=== PATIENT | female | born 1945 | race Caucasian/White ===

== ENCOUNTER → 2017-08-23 | Outpatient (CLI) | payer MEDICARE, OTHER ==
--- NOTE | 2017-08-23 10:12 | US ---
EXAMINATION TYPE: US thyroid st tissue head/neck DATE OF EXAM: 08/23/2017 COMPARISON: 07/20/2016 thyroid ultrasound CLINICAL HISTORY: E04.1 Nontoxic single thyroid nodule. Follow up thyroid nodules GLAND SIZE: Right Lobe: 5.6 x 2.4 x 3.0 cm Overall Parenchyma: heterogenous Left Lobe: 5.1 x 2.0 x 2.3 cm Overall Parenchyma: heterogeneous Isthmus Thickness: 0.4 cm NODULES RIGHT: # of nodules measured on right: 4 1. 0.6 X 0.4 x 0.6 cm mixed nodule at the upper pole with well-defined margins; . This nodule is w ider than tall and shows intranodular vascularity. Prior size: 0.6 x 0.6 x 0.4 cm 2. 2.6 X 1.5 x 1.8 cm isoechoic mixed nodule at the upper/mid pole with well-defined margins; . Thi s nodule is wider than tall and shows intranodular vascularity. Prior size: 1.9 x 1.4 x 1.4 cm 3. 1.9 X 1.4 x 1.7 cm mixed nodule at the lower pole with well-defined margins; . This nodule is wi mar than tall and shows intranodular vascularity. Prior size: 1.9 x 1.5 x 1.4 cm 4. 0.7 X 0.4 x 0.8 cm mixed nodule at the lower/medial pole with well-defined margins; . This nodul e is wider than tall and shows intranodular vascularity. Prior size: 0.5 x 0.5 x 0.5 cm LEFT: # of nodules measured on left: 2 1. 1.1 X 0.6 x 0.9 cm mixed nodule at the upper/mid pole with well-defined margins; . This nodule is wider than tall and shows intranodular vascularity. Prior size: 1.0 x 0.8 x 0.5 cm 2. 2.1 X 1.4 x 1.8 cm isoechoic solid nodule at the mid/lower pole with well-defined margins; . Thi s nodule is wider than tall and shows intranodular vascularity. Prior size: 2.1 x 1.1 x 1.0 cm ISTHMUS: # of nodules measured in the isthmus: 1 1. 0.4 X 0.3 x 0.4 cm mixed nodule at the right isthmus pole with well-defined margins; . This nod ule is wider than tall and shows no intranodular vascularity. Prior size: 0.5 x 0.4 x 0.3 cm Bilateral neck scanned, no evidence of lymphadenopathy. Heterogeneous, enlarged thyroid gland. Multiple nodules noted IMPRESSION: 1. Interval growth of a single right upper to mid isoechoic thyroid nodule, previously biopsied on and pathologically proven benign. This is increased in size to 2.6 cm as opposed to 1.9 cm. Rebiopsy could be performed given the interval growth. Alternatively nuclear medicine thyroid scan co uld be performed to evaluate for focal photopenia. 2. Multiple other bilateral thyroid nodules demonstrate no significant change from the prior represen ting a multinodular thyroid goiter.
== END | disposition home or self-care (01) ==
LOC: RADUSWWP 07:36
PROVIDERS: ATTEND Otolaryngology
DX: E04.2 Nontoxic multinodular goiter (principal)
CPT/HCPCS: 76536

== ENCOUNTER → 2018-08-27 | Outpatient (CLI) | payer MEDICARE, OTHER ==
--- NOTE | 2018-09-01 11:08 | MM ---
Reason for exam: screening (asymptomatic). Last mammogram was performed 1 year and 1 month ago. History: Patient is postmenopausal, history of other cancer, and is nulliparous. Family history of breast cancer in paternal cousin at age 40 and breast cancer in paternal aunt at age 60. 2 cyst aspirations of the right breast. MG 3D Screening Mammo W/Cad Bilateral CC and MLO view(s) were taken. Prior study comparison: July 19, 2017, bilateral MG 3d diag mammo w/cad JEFFREY. June 21, 2016, right breast MG 3d work up w/cad RT. The breast tissue is heterogeneously dense. This may lower the sensitivity of mammography. There are benign round bilateral breast calcifications. No discrete abnormality. ASSESSMENT: Benign, BI-RAD 2 RECOMMENDATION: Routine screening mammogram of both breasts in 1 year.
== END | disposition home or self-care (01) ==
LOC: RADMAMWWP 09:50
PROVIDERS: ATTEND Family Medicine
DX: Z12.31 Encounter for screening mammogram for malignant neoplasm of breast (principal)
CPT/HCPCS: 77063; 77067

== ENCOUNTER → 2018-08-27 | Outpatient (CLI) | payer MEDICARE, OTHER ==
--- NOTE | 2018-08-27 14:22 | US ---
EXAMINATION TYPE: US thyroid st tissue head/neck DATE OF EXAM: 08/27/2018 COMPARISON: 08/23/2017 CLINICAL HISTORY: E04.1 Thyroid Nodule. GLAND SIZE: Right Lobe: 5.3 x 2.3 x 2.5 cm Overall Parenchyma: heterogenous Left Lobe: 5.1 x 1.8 x 1.7 cm Overall Parenchyma: heterogeneous Isthmus Thickness: 0.2 cm NODULES RIGHT: # of nodules measured on right: 4 1. 0.7 X 0.4 x 0.9 cm hypoechoic mixed nodule at the upper pole with well-defined margins. This no dule is wider than tall and shows no intranodular vascularity. Prior size: 0.6 x 0.4 x 0.6 cm 2. 2.4 X 1.2 x 1.8 cm isoechoic mixed nodule at the upper/mid pole with well-defined margins. This nodule is wider than tall and shows intranodular vascularity. Prior size: 2.6 x 1.5 x 1.8 cm 3. 1.9 X 1.3 x 1.8 cm isoechoic solid nodule at the lower pole with well-defined margins. This nodu le is wider than tall and shows intranodular vascularity. Prior size: 1.9 x 1.4 x 1.8 cm 4. 0.5 X 0.3 x 0.5 cm hypoechoic mixed nodule at the lower pole with well-defined margins. This nod ule is wider than tall and shows intranodular vascularity. Prior size: 0.7 x 0.4 x 0.8 cm LEFT: # of nodules measured on left: 2 1. 0.9 X 0.6 x 0.8 cm hypoechoic mixed nodule at the upper/mid pole with well-defined margins. Thi s nodule is wider than tall and shows intranodular vascularity. Prior size: 1.1 x 0.6 x 0.9 cm 2. 2.1 X 1.4 x 1.8cm hypoechoic solid nodule at the mid/lower pole with well-defined margins. This nodule is wider than tall and shows no intranodular vascularity. Prior size 2.1 X 1.4 x 1.8cm ISTHMUS: # of nodules measured in the isthmus: 1 1. 0.5 X 0.3 x 0.6 cm hypoechoic solid nodule at the right pole with well-defined margins. This no dule is wider than tall and shows no intranodular vascularity. Prior size: 0.4 x 0.3 x 0.4 cm Bilateral neck scanned, no evidence of lymphadenopathy. IMPRESSION: Multinodular goiter with the nodules appear to be stable in size relative to the prior exam. Correlat e for thyroiditis.
== END | disposition home or self-care (01) ==
LOC: RADUSWWP 09:54
PROVIDERS: ATTEND Otolaryngology
DX: E04.2 Nontoxic multinodular goiter (principal)
CPT/HCPCS: 76536

== ENCOUNTER → 2018-12-25 | Outpatient (CLI) | payer MEDICARE, OTHER ==
--- NOTE | 2018-12-25 14:01 | XR ---
2 view abdomen HISTORY: Incomplete colonoscopy 2 views the abdomen on 3 images Air-filled loops of small and large bowel are present. Bone mineralization is maintained. Possible va scular calcifications are noted. Degenerative disc changes are noted in the visualized spine. Lung ba ses are clear. No pneumoperitoneum. IMPRESSION: Post colonoscopy findings.
== END | disposition home or self-care (01) ==
LOC: RADFLMAIN 10:25
PROVIDERS: ATTEND Surgery
DX: Z53.9 Procedure and treatment not carried out, unspecified reason (principal)
CPT/HCPCS: 74019

== ENCOUNTER → 2018-12-26 | Outpatient (CLI) | payer MEDICARE, OTHER ==
--- NOTE | 2018-12-26 09:52 | FL ---
EXAMINATION TYPE: FL barium enema DATE OF EXAM: 12/26/2018 COMPARISON: NONE HISTORY: Incomplete colonoscopy TECHNIQUE: A single contrast barium enema study is performed. 1 minute and 58 seconds of fluoroscopy time was utilized. FINDINGS: Engraver Pantograph view of the abdomen shows overall non-obstructive bowel gas pattern. This also demon strates osseous demineralization and moderate degenerative change of the spine and femoral acetabular joints. Numerous sigmoid diverticula are seen. Caliber of the sigmoid colon diffusely is slightly smaller or[place] n the remainder of the colon and may be sequela of chronic diverticulitis. Few diverticula are scatte red throughout the remainder the colon. No evidence of any mass or polyp, obstructing or constricting lesion throughout the colon. Appendix was filled and appeared normal. The terminal ileum was refluxed. IMPRESSION: Pancolonic diverticulosis predominating in the sigmoid colon. Sigmoid colon is slightly smaller in caliber in a long segment than the remainder the colon, possibly sequela of chronic divert iculitis. No annular constricting mass is seen.
== END | disposition home or self-care (01) ==
LOC: RADFLMAIN 08:19
PROVIDERS: ATTEND Surgery
DX: Z53.9 Procedure and treatment not carried out, unspecified reason (principal)
CPT/HCPCS: 74270

== ENCOUNTER → 2019-08-22 | Outpatient (CLI) | payer MEDICARE, OTHER ==
--- NOTE | 2019-08-22 11:51 | US ---
EXAMINATION TYPE: US thyroid st tissue head/neck DATE OF EXAM: 08/22/2019 COMPARISON: US 08/27/2018 and 08/23/2017. CLINICAL HISTORY: E04.1 Thyroid nodule. F/U nodules GLAND SIZE: Right Lobe: 5.4 x 2.0 x 3.1 cm Overall Parenchyma: heterogenous Left Lobe: 5.0 x 2.0 x 1.5 cm Overall Parenchyma: heterogeneous Isthmus Thickness: 0.4 cm NODULES RIGHT: # of nodules measured on right: 4 1. 0.8 X 0.5 x 0.9 cm hypoechoic solid nodule at the mid pole with well-defined margins; This nod ule is wider than tall and shows intranodular vascularity. Prior size: 0.7 x 0.4 x 0.9 cm 2. 2.6 X 1.4 x 2.1 cm echogenic mixed nodule at the mid pole with well-defined margins; This nodule is wider than tall and shows intranodular vascularity. Prior size: 2.4 x 1.2 x 1.8 cm 3. 2.5 X 1.5 x 1.5 cm isoechoic solid nodule at the lower pole with well-defined margins; This nod ule is wider than tall and shows intranodular vascularity. Prior size: 1.9 x 1.3 x 1.8 cm 4. 1.2 X 0.7 x 1.0 cm isoechoic solid nodule at the mid pole with poorly defined margins; This nod ule is wider than tall and shows intranodular vascularity. Prior size: Not visualized on prior LEFT: # of nodules measured on left: 2 1. 0.9 X 0.7 x 0.9 cm hypoechoic solid nodule at the mid pole with well-defined margins; This nodul e is wider than tall and shows intranodular vascularity. Prior size: 0.9 x 0.6 x 0.8 cm 2. 1.9 X 1.5 x 1.7 cm echogenic solid nodule at the lower pole with well-defined margins; This nod ule is wider than tall and shows intranodular vascularity. Prior size: 2.1 x 1.4 x 1.8 cm ISTHMUS: # of nodules measured in the isthmus: 1 1. 0.5 X 0.3 x 0.4 cm hypoechoic solid nodule with well-defined margins; This nodule is wider than tall and shows no intranodular vascularity. Prior size: 0.5 x 0.3 x 0.6 cm Bilateral neck scanned, no evidence of lymphadenopathy. New nodule right lobe. IMPRESSION: 1. Solitary new 1.2 cm right thyroid nodule. 2. Similar size of the bilateral thyroid nodules with slight growth of the largest right thyroid nodu le in comparison to the most recent exam, now 2.6 cm in size. However this was noted to be 2.6 cm on the exam of 08/23/2017. Multinodular goiter.
== END | disposition home or self-care (01) ==
LOC: RADUSWWP 10:49
PROVIDERS: ATTEND Otolaryngology
DX: E04.2 Nontoxic multinodular goiter (principal)
CPT/HCPCS: 76536

== ENCOUNTER 2019-09-12 09:28 | Day surgery (SDC) | payer MEDICARE, OTHER ==
[2019-09-12 10:01] VITALS: RESP 16; TEMP 97.4
--- NOTE | 2019-09-12 10:38 | US ---
ULTRASOUND GUIDED FNA THYROID BIOPSY: CLINICAL HISTORY: Request for 1.2 cm right thyroid nodule FNA FINDINGS: The procedure was explained to the patient. The risks, complications, benefits and alternatives were discussed and any questions were answered. Informed consent was obtained. Patient was placed supin e on the ultrasound table and prepped and draped in the usual sterile fashion. Utilizing a 25 gauge needle, five passes were made into the requested nodule. Patient was stable throughout the procedure. Pathology is pending. All elements of maximal barrier technique were utilized. IMPRESSION: 1. Successful ultrasound guided FNA thyroid biopsy.
[2019-09-12 10:50] VITALS: BP 129/84; PULSE 62
== END 2019-09-12 10:40 | disposition home or self-care (01) ==
LOC: RADPROMAIN 09:28
PROVIDERS: ATTEND Otolaryngology
DX: E04.1 Nontoxic single thyroid nodule (principal)
CPT/HCPCS: 10005; 88173; 88305

== ENCOUNTER → 2020-09-29 | Outpatient (CLI) | payer MEDICARE, OTHER ==
--- NOTE | 2020-09-29 15:52 | US ---
EXAMINATION TYPE: US thyroid st tissue head/neck DATE OF EXAM: 09/29/2020 COMPARISON: US 08/22/2019 CLINICAL HISTORY: E04.1 THYROID NODULE. Follow up. Patient had FNA 1 year ago GLAND SIZE: Right Lobe: 5.3 x 3.0 x 2.8 cm Overall Parenchyma: heterogenous Left Lobe: 4.8 x 1.9 x 1.7 cm Overall Parenchyma: heterogeneous Isthmus Thickness: 0.6 cm NODULES RIGHT: # of nodules measured on right: 4 1. 3.1 X 1.6 x 2.3 cm mixed cystic and solid, hyperechoic nodule, which is wider than tall, with sm ooth margins, without echogenic foci. Prior size: 2.5 X 1.5 x 1.5 cm 2. 2.3 X 1.5 x 1.8 cm solid or almost completely solid, isoechoic nodule, which is wider than tall, with smooth margins, without echogenic foci. Prior size: 2.5 X 1.5 x 1.5 cm 3. 1.1 X 0.8 x 1.4 cm solid or almost completely solid, hypoechoic nodule, which is wider than tall , with smooth margins, without echogenic foci. Prior size: 1.2 X 0.7 x 1.0 cm LEFT: # of nodules measured on left: 2 1. 1.9 X 1.5 x 1.3 cm solid or almost completely solid, hyperechoic nodule, which is wider than grey l, with smooth margins, without echogenic foci. Prior size: 2.1 x 1.4 x 1.8 cm 2. 1.2 X 0.6 x 1.2 cm solid or almost completely solid, hypoechoic nodule, which is wider than tall , with lobulated or irregular margins, without echogenic foci. Prior size: 0.9 x 0.6 x 0.8 cm ISTHMUS: # of nodules measured in the isthmus: 1 1. 0.5 cm solid or almost completely solid, hypoechoic nodule, which is wider than tall, with smooth margins, without echogenic foci. Prior size: 0.5 cm Bilateral neck scanned, no evidence of lymphadenopathy. Persistent heterogeneous multinodular thyroid with asymmetric right-sided thyroid enlargement. IMPRESSION: As above. No new concerning greater than 1 cm nodules. Prior sampling noted.
== END | disposition home or self-care (01) ==
LOC: RADUSWWP 14:53
PROVIDERS: ATTEND Otolaryngology
DX: E04.2 Nontoxic multinodular goiter (principal)
CPT/HCPCS: 76536

== ENCOUNTER → 2021-05-10 | Outpatient (CLI) | payer MEDICARE, OTHER ==
--- NOTE | 2021-05-10 12:09 | US ---
EXAMINATION TYPE: US thyroid st tissue head/neck DATE OF EXAM: 05/10/2021 COMPARISON: Multiple thyroid US's, Latest = 09/29/20, Right thyroid FNA 09/12/19 = negative per pt. CLINICAL HISTORY: 76-year-old female E04.1 thyroid nodule. TECHNIQUE: Multiple sonographic images of the thyroid gland are obtained. FINDINGS: GLAND SIZE: Right Lobe: 4.9 x 1.8 x 1.7 cm Overall Parenchyma: heterogenous Left Lobe: 4.9 x 2.2 x 1.9 cm Overall Parenchyma: heterogeneous Isthmus Thickness: 0.7 cm NODULES RIGHT: # of nodules measured on right: 4 1. 0.9 X 0.8 x 0.5 cm, lower mid, solid or almost completely solid, nodule, which is wider than grey l, with smooth margins, without echogenic foci. Prior size: = 0.8 x 0.5 x 0.8 cm 2. 2.9 X 2.1 x 1.6 cm, upper lateral, mixed cystic and solid, hyperechoic nodule, which is wider th an tall, with smooth margins, with echogenic foci. Prior size: 3.1 x 1.6 x 2.3 cm cm 3. 2.7 X 1.5 x 1.5 cm, mid mid, solid or almost completely solid, mixed echogenicity nodule, which is wider than tall, with smooth margins, without echogenic foci. Prior size: 2.3 x 1.5 x 1.8 cm 4. 1.0 X 0.9 x 0.5 cm, lower medial, solid or almost completely solid, hypoechoic nodule, which is wider than tall, with smooth margins, without echogenic foci. Prior size: 1.1 x 0.8 x 1.4 cm LEFT: # of nodules measured on left: 2 1. 2.0 X 1.5 x 1.5 cm, lower mid, solid or almost completely solid, hyperechoic nodule, which is wi mar than tall, with smooth margins, without echogenic foci. Prior size: 1.9x 1.5 x 1.3 cm 2. 1.2 X 0.7x 1.2cm, mid mid, solid or almost completely solid, hypoechoic nodule, which is wider t mchugh tall, with smooth margins, without echogenic foci. Prior size: 1.2x 0.6 x 1.2 cm ISTHMUS: # of nodules measured in the right isthmus: 1 1. 0.8 X 0.7 x 0.5 cm solid or almost completely solid, hypoechoic nodule, which is wider than tall , with lobulated or irregular margins, without echogenic foci. Prior size: 6 mm Bilateral neck scanned, no evidence of lymphadenopathy. IMPRESSION: 1. Multinodular goiter. 2. Dominant nodules on the right measuring 2.9 cm (slightly smaller versus 3.1 cm, previously). Secon d dominant solid nodule in the midpole is stable to minimally larger at 2.7 cm (versus 2.3 cm, previo usly). Continued follow-up can be performed. 3. A solid TR4 nodule in the right thyroid isthmus is slightly larger at 8 mm versus 6 mm, previously .
== END | disposition home or self-care (01) ==
LOC: RADUSWWP 08:14
PROVIDERS: ATTEND Otolaryngology
DX: E04.2 Nontoxic multinodular goiter (principal)
CPT/HCPCS: 76536

== ENCOUNTER → 2022-05-26 | Outpatient (CLI) | payer MEDICARE, OTHER ==
--- NOTE | 2022-05-26 10:16 | US ---
EXAMINATION TYPE: US thyroid st tissue head/neck DATE OF EXAM: 05/26/2022 COMPARISON: US 2020 CLINICAL HISTORY: E04.1 Nontoxic single thyroid nodule. GLAND SIZE: Right Lobe: 5.8 x 2.6 x 3.1 cm, enlarged Overall Parenchyma: heterogenous Left Lobe: 5.1 x 2.3 x 1.7 cm, enlarged Overall Parenchyma: heterogeneous Isthmus Thickness: 0.5 cm NODULES RIGHT: # of nodules measured on right: 2 1. 2.8 X 1.3 x 2.2 cm, upper lateral, mixed cystic and solid, hypoechoic nodule, which is wider [place] n tall, with smooth margins, without echogenic foci. Prior size: 2.9 x 2.1 x 1.6 cm 2. 2.6 X 1.4 x 1.8 cm, mid, solid or almost completely solid, hypoechoic nodule, which is wider [place] n tall, with smooth margins, without echogenic foci. Prior size: 2.7 x 1.5 x 1.5 cm LEFT: # of nodules measured on left: 2 1. 1.8 X 1.6 x 1.3 cm, lower mid, solid or almost completely solid, hyperechoic nodule, which is ta ller than wide, with smooth margins, without echogenic foci. Prior size: 2.0 x 1.5 x 1.5 cm 2. 1.3 X 0.9 x 1.1 cm, mid, solid or almost completely solid, hypoechoic nodule, which is wider th an tall, with smooth margins, without echogenic foci. Prior size: 1.2 x 0.7 x 1.2 cm ISTHMUS: # of nodules measured in the isthmus: 0 Bilateral neck scanned, no evidence of lymphadenopathy. Heterogeneous enlarged thyroid with bilateral nodules redemonstrated. IMPRESSION: As above. No significant change from prior studies.
== END | disposition home or self-care (01) ==
LOC: RADUSWWP 09:18
PROVIDERS: ATTEND Otolaryngology
DX: E04.2 Nontoxic multinodular goiter (principal)
CPT/HCPCS: 76536

== ENCOUNTER 2023-02-06 17:29 | Emergency (ER) | payer MEDICARE, OTHER ==
--- NOTE | 2023-02-06 17:33 | ED ---
General Adult HPI - General Source: RN notes reviewed <Amara Baez - Last Filed: 02/06/23 17:32> <Benji Garcia - Last Filed: 02/06/23 21:51> - General Stated complaint: Sent From Urgent Care, Neuro Symptoms Time Seen by Provider: 02/06/23 17:33 - History of Present Illness Initial comments: 78-year-old female with no significant past medical history presents to the emergency department with a chief complaint of altered mental status. Family reports that patient and not acting herself for approximately one month with worsening altered mental status the last 4 nights. (Amara Baez) Dictation was produced using [employer] dictation software. please excuse any grammatical, word or spelling errors. Chief Complaint: 78-year-old female presents emergency department for left facial droop and left upper showing weakness History of Present Illness: Is 78-year-old female she initially presented to the urgent care for urinary symptoms. She was evaluated by physician bankruptcy assistant there who saw the patient had left facial droop and mild weakness of the left upper extremity. Patient doesn't have any history of stroke. Daughter at the bedside reports that patient has had some confusion recently. Patient denies any complaints at this time. Daughter doesn't notice a facial droop. The ROS documented in this emergency department record has been reviewed and confirmed by me. Those systems with pertinent positive or negative responses have been documented in the HPI. All other systems are other negative and/or noncontributory. (Benji Garcia) - Related Data Home Medications Medication Instructions Recorded Confirmed Aspirin 325 mg PO DAILY 06/05/15 09/12/19 Atorvastatin [Lipitor] 20 mg PO DAILY 06/05/15 09/12/19 Cholecalciferol [Vitamin D3] 1,000 unit PO DAILY 06/05/15 08/30/19 Primidone [Mysoline] 75 mg PO BID 06/05/15 08/30/19 Propranolol HCl [Inderal] 60 mg PO DAILY 06/05/15 08/30/19 buPROPion HCL [buPROPion HCL SR] 150 mg PO DAILY 08/30/19 08/30/19 clonazePAM [KlonoPIN] 0.5 mg PO BID 08/30/19 08/30/19 Allergies Allergy/AdvReac Type Severity Reaction Status Date / Time No Known Allergies Allergy Verified 09/12/19 09:55 Review of Systems ROS Other: All systems not noted in ROS Statement are negative. <Amara Baez - Last Filed: 02/06/23 17:32> ROS Other: All systems not noted in ROS Statement are negative. <Benji Garcia - Last Filed: 02/06/23 21:51> ROS Statement: Those systems with pertinent positive or pertinent negative responses have been documented in the HPI. Past Medical History Past Medical History: Cancer, Thyroid Disorder Additional Past Medical History / Comment(s): tremors, mass on adrenal gland being investigated, lower back pain. 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 History of Any Multi-Drug Resistant Organisms: None Reported Past Surgical History: Back Surgery Additional Past Surgical History / Comment(s): back surgery in - "fixed slip disc", thyroid biopsy, skin scraping x4 for basal cell legs and forehead Past Anesthesia/Blood Transfusion Reactions: No Reported Reaction, Postoperative Nausea & Vomiting (PONV) Additional Past Anesthesia/Blood Transfusion Reaction / Comment(s): no previous Past Psychological History: No Psychological Hx Reported Past Alcohol Use History: None Reported Additional Past Alcohol Use History / Comment(s): pt doesn't want info on smoking cessation - 08/30/19 Past Drug Use History: None Reported - Past Family History Father Family Medical History: No Reported History <Amara Baez - Last Filed: 02/06/23 17:32> General Exam <Amara Baez - Last Filed: 02/06/23 17:32> <Benji Garcia - Last Filed: 02/06/23 21:51> - General Exam Comments Initial Comments: Visual Physical Exam Vital signs reviewed General: Well-appearing, nontoxic, no acute distress. Head: Normocephalic, atraumatic Eyes: PERRLA, EOMI ENT: Airway patent Chest: Nonlabored breathing Skin: No visual rash, normal skin tone Neuro: Alert and oriented 3 Musculoskeletal: No gross abnormalities (Amara Baez) PHYSICAL EXAM: General Impression: Alert and oriented x3, not in acute distress HEENT: Normocephalic atraumatic, extra-ocular movements intact, pupils equal and reactive to light bilaterally, mucous membranes moist. Cardiovascular: Heart regular rate and rhythm Chest: Able to complete full sentences, no retractions, no tachypnea Abdomen: abdomen soft, non-tender, non-distended, no organomegaly Musculoskeletal: Pulses present and equal in all extremities, no peripheral edema Motor: no focal deficits noted Neurological: Left facial droop, barely noticeable strength discrepancy with the left vice president strength being slightly last Skin: Intact with no visualized rashes Psych: Normal affect and mood (Benji Garcia) Course Vital Signs 02/06/23 17:31 Temperature 97.8 F Pulse Rate 62 Respiratory 18 Rate Blood Pressure 123/76 O2 Sat by Pulse 96 Oximetry Medical Decision Making - Lab Data Result diagrams: 02/06/23 18:14 02/06/23 18:14 <Benji Garcia - Last Filed: 02/06/23 21:51> - Medical Decision Making Was pt. sent in by a medical professional or institution (, PA, TEST TECHNICIAN, urgent care, hospital, or snf...) When possible be specific @ -No Did you speak to anyone other than the patient for history (EMS, parent, family, police, friend...)? What history was obtained from this source @ -No Did you review nursing and triage notes (agree or disagree)? Why? @ -I reviewed and agree with nursing and triage notes Were old charts reviewed (outside hosp., previous admission, EMS record, old EKG, old radiological studies, urgent care reports/EKG's, snf records)? Report findings @ -No old charts were reviewed Differential Diagnosis (chest pain, altered mental status, abdominal pain women, abdominal pain men, vaginal bleeding, musculoskeletal, weakness, fever, dyspnea , syncope, headache, dizziness, GI bleed, back pain, seizure, CVA, palpatations, mental health)? @ - Differential CVA: Ischemic stroke, hemorrhagic stroke, brain tumor, atypical migraine, Wernicke's encephalopathy, seizure, multiple sclerosis, meningitis, encephalitis, hypoglyce wolfgang, Guillain-Crenshaw, electrolytes disturbance, myasthenia gravis.... This is not meant to be an all-inclusive list EKG interpreted by me (3pts min.). @ -My EKG interpretation: Ventricular rate 50, sinus bradycardia, right bundle branch block,. Interval 200, QRS 142, QTc 4:30. No NV prolongation, no QTC prolongation, no ST or T-wave changes noted. Overall, this EKG is unremarkable X-rays interpreted by me (1pt min.). @ -Chest X-ray shows no acute processes CT interpreted by me (1pt min.). @ -Computed tomography scan the brain shows large right frontal mass with surrounding vasogenic edema U/S interpreted by me (1pt. min.). @ -None done What testing was considered but not performed or refused? (CT, X-rays, U/S, labs)? Why? @ -None What meds were considered but not given or refused? Why? @ -None Did you discuss the management of the patient with other professionals (professionals i.e. , PA, TEST TECHNICIAN, lab, RT, psych nurse, social services director, dictaphone mechanic, teacher, community service officer, therapeutic case manager)? Give summary @ -Discussed with Dr. Mclean for ER to ER transfer Was smoking cessation discussed for >3mins.? @ -No Was critical care preformed (if so, how long)? @ -No Were there social determinants of health that impacted care today? How? (Ho melessness, low income, unemployed, alcoholism, drug addiction, transportation, low edu. Level, literacy, decrease access to med. care, skilled nursing, rehab)? @ -No Was there de-escalation of care discussed even if they declined (Discuss DNR or withdrawal of care, Hospice)? DNR status @ -No What co-morbidities impacted this encounter? (DM, HTN, Smoking, COPD, CAD, Cancer, CVA, ARF, Chemo, Hep., AIDS, mental health diagnosis, sleep apnea, morbid obesity)? @ -None Was patient admitted / discharged? Hospital course, mention meds given and route, prescriptions, significant lab abnormalities, going to OR and other pertinent info. @ -78-year-old female presents emergency Department with left facial droop. Vital signs are stable. Computed tomography scan shows no intracranial mass. Patient transferred to [place] for neurosurgical care. Undiagnosed new problem with uncertain prognosis? @ -No Drug Therapy requiring intensive monitoring for toxicity (Heparin, Nitro, Insulin, Cardizem)? @ -No Were any procedures done? @ -No Diagnosis/symptom? Acute, or Chronic, or Acute on Chronic? Uncomplicated (without systemic symptoms) or Complicated (systemic symptoms)? @ -1. Brain mass Side effects of treatment? @ -No Exacerbation, Progression, or Severe Exacerbation? @ -No Poses a threat to life or bodily function? How? (Chest pain, USA, PA, pneumonia, PE, COPD, DKA, ARF, appy, cholecystitis, CVA, Diverticulitis, Homicidal, Suicidal, threat to staff... and all critical care pts) @ -yes (Benji Garcia) - Lab Data Lab Results 02/06/23 02/06/23 Range/Units 18:14 18:14 WBC 8.3 (3.8-10.6) k/uL RBC 4.59 (3.80-5.40) m/uL Hgb 13.8 (11.4-16.0) gm/dL Hct 43.2 (34.0-46.0) % MCV 94.0 (80.0-100.0) fL MCH 30.0 (25.0-35.0) pg MCHC 32.0 (31.0-37.0) g/dL RDW 13.1 (11.5-15.5) % Plt Count 240 (150-450) k/uL MPV 9.2 Neutrophils % 72 % Lymphocytes % 17 % Monocytes % 7 % Eosinophils % 2 % Basophils % 0 % Neutrophils # 6.0 (1.3-7.7) k/uL Lymphocytes # 1.4 (1.0-4.8) k/uL Monocytes # 0.6 (0-1.0) k/uL Eosinophils # 0.2 (0-0.7) k/uL Basophils # 0.0 (0-0.2) k/uL Sodium 142 (137-145) mmol/L Potassium 4.0 (3.5-5.1) mmol/L Chloride 110 H (98-107) mmol/L Carbon Dioxide 24 (22-30) mmol/L Anion Gap 8 mmol/L BUN 26 H (7-17) mg/dL Creatinine 0.81 (0.52-1.04) mg/dL Est GFR (CKD-EPI)AfAm 82 (>60 ml/min/1.73 sqM) Est GFR (CKD-EPI)NonAf 71 (>60 ml/min/1.73 sqM) Glucose 98 (74-99) mg/dL Calcium 9.5 (8.4-10.2) mg/dL Total Bilirubin 0.5 (0.2-1.3) mg/dL AST 31 (14-36) U/L ALT 25 (4-34) U/L Alkaline Phosphatase 83 (38-126) U/L Total Protein 7.2 (6.3-8.2) g/dL Albumin 4.1 (3.5-5.0) g/dL Disposition <Amara Baez - Last Filed: 02/06/23 17:32> Time of Disposition: 21:51 - Out of Hospital Transfer - Req. Specs Out of Hospital Transfer - Requested Specifics: Other Emergency Center ([facility]) <Benji Garcia - Last Filed: 02/06/23 21:51> Clinical Impression: Brain mass Disposition: OTHER INSTITUTION NOT DEFINED Condition: Serious Referrals: Isrrael Muellre DO [Primary Care Provider] - 1-2 days
[2023-02-06 17:35] VITALS: RESP 18; TEMP 97.8
[2023-02-06 18:25] LABS: Basophils % (A) 0 %; Eosinophils # (A) 0.2 k/uL (0-0.7); Eosinophils % (A) 2 %; HCT 43.2 % (34.0-46.0); HGB 13.8 gm/dL (11.4-16.0); Lymphocytes # (A) 1.4 k/uL (1.0-4.8); Lymphocytes % (A) 17 %; Mean Platelet Volume 9.2; Monocytes # (A) 0.6 k/uL (0-1.0); Monocytes % (A) 7 %; Neutrophils % (A) 72 %; Platelet Count 240 k/uL (150-450); RBC 4.59 m/uL (3.80-5.40); RDW 13.1 % (11.5-15.5); WBC 8.3 k/uL (3.8-10.6)
[2023-02-06 18:35] LABS: ALT 25 U/L (4-34); AST 31 U/L (14-36); African American GFR (CKD) 82 (>60 ml/min/1.73 sqM); Albumin 4.1 g/dL (3.5-5.0); Alkaline Phosphatase 83 U/L (38-126); Anion Gap 8 mmol/L; Blood Urea Nitrogen 26 mg/dL (7-17); Calcium 9.5 mg/dL (8.4-10.2); Carbon Dioxide 24 mmol/L (22-30); Chloride 110 mmol/L (98-107); Glucose 98 mg/dL (74-99); Non-African American GFR(CKD) 71 (>60 ml/min/1.73 sqM); Sodium 142 mmol/L (137-145); Total Bilirubin 0.5 mg/dL (0.2-1.3); Total Protein 7.2 g/dL (6.3-8.2)
--- NOTE | 2023-02-06 18:50 | XR ---
EXAMINATION TYPE: XR chest 2V DATE OF EXAM: 02/06/2023 6:25 PM COMPARISON: Chest radiographs from 06/23/2016 TECHNIQUE: Frontal and lateral views of the chest. CLINICAL INDICATION:Female, 78 years old with history of weakness; FINDINGS: Lungs/Pleura: There is flattening of the diaphragm with increased lucency of the lungs. No evidence o f pneumothorax, pleural effusion or focal consolidation. Pulmonary vascularity: Unremarkable. Heart/mediastinum: Cardiomediastinal silhouette is unremarkable. Musculoskeletal: No acute osseous pathology. IMPRESSION: 1. No acute cardiopulmonary disease process. 2. COPD changes.
[2023-02-06] MEDS ORDERED: DEXAMETHASONE SOD PHOSPHATE 10 MG/ML 1 ML VIAL IV STA (20:47)
--- NOTE | 2023-02-06 21:28 | CT ---
EXAMINATION TYPE: CT brain wo con CT DLP: 1154 mGycm, Automated exposure control for dose reduction was used. DATE OF EXAM: 02/06/2023 8:46 PM COMPARISON: None. CLINICAL INDICATION:Female, 78 years old with history of left facial droop, neuro symptoms, sent by Jack KNIGHT. TECHNIQUE: Brain: Axial CT images of the brain were obtained with coronal and sagittal reformats created and rev iewed. Contrast used: None. Oral contrast used: None. FINDINGS: Brain: Extra-axial spaces: No abnormal extra-axial fluid collections. Ventricular system: Within normal limits Cerebral parenchyma: Right frontal lobe mass which is unclear whether The intra-axial or extra-axial Contrast exam. This results in vasogenic edema of the right frontal lobe and significant mass effect upon the brain with leftward 2.2 cm midline shift subfalcine herniation. No acute intraparenchymal he morrhage. The mcdowell-white junction is well differentiated. Cerebellum: Unremarkable. Intracranial vasculature: unremarkable Soft tissues: Normal. Calvarium/osseous structures: No depressed skull fracture. Paranasal sinuses and mastoid air cells: Mild scattered paranasal sinus disease. Visualized orbits: Orbital contents are intact. IMPRESSION: Anterior right frontal lobe mass unclear whether it intra-axial or extra-axial with surrounding vasog enic edema of the right frontal lobe. Findings if it extra-axial could represent a large meningioma. If this is intra-axial could represent a primary brain glioma versus metastatic disease versus other. There is leftward 2.2 cm midline shift and subfalcine herniation. Further evaluation MRI with and wi thout IV contrast recommended. Correlate with history of malignancy.
[2023-02-06 22:25] VITALS: BP 123/78; PULSE 56
== END 2023-02-06 22:30 | disposition other institution (70) ==
LOC: EC 17:29
DX: G93.9 Disorder of brain, unspecified (principal); J44.9 Chronic obstructive pulmonary disease, unspecified; Z79.82 Long term (current) use of aspirin
CPT/HCPCS: 93005; 80053; 85025; 71046; 70450; 99285; 96374; J1100; 36415

== ENCOUNTER → 2023-03-21 | Outpatient (CLI) | payer MEDICARE, OTHER ==
--- NOTE | 2023-03-24 10:09 | MR ---
EXAMINATION TYPE: MR brain wo/w con DATE OF EXAM: 03/21/2023 6:19 PM CLINICAL INDICATION:Female, 78 years old with history of D32.0 BENIGN NEOPLASM OF CEREBRAL MENINGES; Hx Brain cancer COMPARISON: 02/21/2023, 02/12/2023 TECHNIQUE: Multi planar, multi sequence imaging was performed through the brain including: T1, T2, In version recovery, susceptibility weighted imaging and gradient echo imaging and Diffusion weighted im aging. The patient was then given intravenous contrast and multi planar, T1 fat-saturation images wer e obtained. IV Contrast: 8 cc Gadavist FINDINGS: Suspected continued evolution of post surgical change with thin the anterior right frontal lobe. Cran iotomy changes are present with some postsurgical changes along the inner plate of the calvarium. Leonor ceptibility artifact along the surgical margins compatible with hemosiderin deposition from prior sudha neo. Postsurgical high T2 signal extends down into the marketing/sales person space along the muscles of mastica tion on the right. Findings likely representing seroma and/or resolving blood products. There is post surgical change to the anterior falx. Post contrast imaging demonstrates heterogenous signal in the s urgical bed. There is some enhancement of the pachymeninges best appreciated on series 901 image 102. Additional enhancement along the craniotomy site. Smaller focus of enhancement more inferiorly near along the interhemispheric fissure slightly asymmetric right series 901 1 image 82 possibly within th e cortex of the right frontal lobe. There is ventricular dilation in proportion to cerebral atrophy. No significant midline shift on toda y's exam. Diffusion-weighted imaging shows no evidence of restricted diffusion to suggest acute/subacute infarc t. There is restricted diffusion in surgical bed consistent with post surgical change. Intracranial arterial flow voids are maintained. Midline structures show no abnormality. Scattered fo ci of high T2 signal intensity are seen within the periventricular white matter. The susceptibility w eighted images do not reveal any evidence for micro-hemorrhage. The bone marrow signal is within normal limits. . Paranasal sinuses and mastoid air cells: Paranasal sinus mucosal thickening involving the right maxil huan sinus. Visualized orbits: Bilaterally aphakia. IMPRESSION: 1. Postsurgical changes with decrease in vasogenic edema compared to 02/12/[address] 02/06/2023. T here is postcontrast enhancement of the pachymeninges in the surgical bed along the anterior skull an d along the falx cerebri which could represent residual tumor in the setting of meningioma. 2. Smaller focus of enhancement more inferiorly near along the interhemispheric fissure slightly asy mmetric right series 901 1 image 82 possibly within the cortex of the right frontal lobe. Attention o n follow-up imaging. Not definitively seen on prior 02/12/2023.
== END | disposition home or self-care (01) ==
LOC: RADMRIMAIN 17:11
PROVIDERS: ATTEND Radiology Radiation Oncology
DX: D32.0 Benign neoplasm of cerebral meninges (principal); G93.6 Cerebral edema; Z98.890 Other specified postprocedural states
CPT/HCPCS: 70553; A9585

== ENCOUNTER → 2023-08-03 | Outpatient (CLI) | payer MEDICARE, OTHER ==
--- NOTE | 2023-08-03 15:16 | MR ---
EXAMINATION TYPE: MR brain wo/w con DATE OF EXAM: 08/03/2023 COMPARISON: 03/21/2023 HISTORY: Brain cancer, hx of tumor removal TECHNIQUE: Multiplanar, multisequence images of the brain and brainstem is performed without and with IV contras t, utilizing 8 mL intravenous Gadavist . FINDINGS: There are postsurgical changes of a right frontal craniotomy for resection of the mass right frontal region.. As on the prior study, there is stable diffuse enhancement of the anterior falx and meninge s possibly postsurgical in nature. . The enhancement seen within the surgical bed on the prior study has decreased significantly in the interval and there is no definite evidence for recurrent or residu al neoplasm. Extra-axial fluid collection along the right inner table of the frontal bone which is st able. There is persistent stable vasogenic edema in the right frontal white matter adjacent to the smith rgical site. No new lesions are seen. The ventricles, basal cisterns and sulci over the convexities are moderately enlarged consistent with moderate atrophy. There is no mass effect or shift of the midline structures. The posterior fossa including the brainstem, fourth ventricle and cerebellar pontine angles appear no rmal. The intraorbital contents appear normal and symmetric. There is acute inflammatory change in the right maxillary sinus. There is mild fluid in the left mast oid air cells. There is no diffusion restriction on the diffusion-weighted images. IMPRESSION: 1. Postsurgical changes of right frontal craniotomy and resection of a tumor in the right frontal reg ion. 2. No change in the mild meningeal enhancement and vasogenic edema in the right frontal region. 3. Decreased enhancement in the surgical bed. Minimal enhancement persists. Cannot exclude residual n eoplasm. 4. No new lesions seen. 5. No mass effect or shift of the midline structures.
== END | disposition home or self-care (01) ==
LOC: RADMRIMAIN 13:15
PROVIDERS: ATTEND Radiology Radiation Oncology
DX: D42.0 Neoplasm of uncertain behavior of cerebral meninges (principal); R60.0 Localized edema; F17.210 Nicotine dependence, cigarettes, uncomplicated; Z98.890 Other specified postprocedural states
CPT/HCPCS: 70553; A9585

== ENCOUNTER → 2023-11-06 | Outpatient (CLI) | payer MEDICARE, OTHER ==
--- NOTE | 2023-11-06 23:02 | MR ---
EXAMINATION TYPE: MR brain wo/w con DATE OF EXAM: 11/06/2023 COMPARISON: HISTORY: Follow-up per Dr. Brown-post tumor removal CONTRAST: Performed utilizing 6.5ml mL intravenous Gadavist gadolinium contrast. TECHNIQUE: Multiplanar, multiecho imaging on a 3.0 Ally magnet is performed through the brain. Stud y is performed within 24 hours of arrival to the hospital. The craniovertebral junction is normal. The pituitary is normal. Postsurgical changes are within the right frontal lobe. White matter changes are adjacent to the ante rior horn right lateral ventricle and the resected frontal lobe. Postsurgical changes are at the fron grey lobe resection border. Some minimal old prior hemorrhage has some blooming effect. No acute or smith bacute hemorrhage. The resection margin does not have abnormal enhancement. No abnormal enhancement is evident elsewhere within the brain. Diffusion-weighted imaging is performed. No abnormal hyperintensity is present to suggest an acute i ntracranial infarct or acute ischemic change. Ventricles and sulci are there is moderate prominence of ventricles and sulci, stable from comparison for the patient age. There is opacification of the right maxillary sinus. IMPRESSION: 1. No suspicious changes to suggest recurrent tumor right frontal lobe. Postresection changes appear stable from comparison. 2. Atrophy. 3. Mild periventricular white matter changes adjacent to the anterior horns lateral ventricles. This white matter change extends towards the resection area of the right frontal lobe, but appear stable f rom comparison
== END | disposition home or self-care (01) ==
LOC: RADMRIMAIN 11:52
PROVIDERS: ATTEND Radiology Radiation Oncology
DX: D32.0 Benign neoplasm of cerebral meninges (principal); G31.9 Degenerative disease of nervous system, unspecified; R90.82 White matter disease, unspecified; F17.210 Nicotine dependence, cigarettes, uncomplicated
CPT/HCPCS: 70553; A9585

== ENCOUNTER 2023-12-25 14:47 | Emergency (ER) | payer MEDICARE, OTHER ==
--- NOTE | 2023-12-25 15:00 | ED ---
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 Patient reports yesterday she was washing her feet and accidentally lost her balance. She does report she was kneeling when she fell. She does states she hit her head. Denies loss of consciousness or blood thinner use. No other injuries or complaints. (Armando Yancey) This is a 78-year-old female to the ER for evaluation of fall. Patient lost balance while washing her feet fell backwards hit her head, no loss of consciousness or blood thinners. Mild to severe headache positive nausea vomiting (Jamie Fu) - Related Data Home Medications Medication Instructions Recorded Confirmed Aspirin 325 mg PO DAILY 06/05/15 09/12/19 Atorvastatin [Lipitor] 20 mg PO DAILY 06/05/15 09/12/19 Cholecalciferol [Vitamin D3] 1,000 unit PO DAILY 06/05/15 08/30/19 Primidone [Mysoline] 75 mg PO BID 06/05/15 08/30/19 Propranolol HCl [Inderal] 60 mg PO DAILY 06/05/15 08/30/19 buPROPion HCL [buPROPion HCL SR] 150 mg PO DAILY 08/30/19 08/30/19 clonazePAM [KlonoPIN] 0.5 mg PO BID 08/30/19 08/30/19 Previous Rx's Medication Instructions Recorded HYDROcodone/APAP 7.5-325MG [[place] 1 tab PO Q6HR PRN 3 Days #12 tab 04/09/23 7.5-325] Allergies Allergy/AdvReac Type Severity Reaction Status Date / Time No Known Allergies Allergy Verified 12/25/23 16:06 Review of Systems ROS Other: All systems not noted in ROS Statement are negative. <Armando Yancey - Last Filed: 12/25/23 14:59> ROS Other: All systems not noted in ROS Statement are negative. <Jamie Fu - Last Filed: 01/02/24 14:54> ROS Statement: Those systems with pertinent positive or pertinent negative responses have been documented in the HPI. Past Medical History Past Medical History: Cancer, GERD/Reflux, Thyroid Disorder Additional Past Medical History / Comment(s): tremors, mass on adrenal gland being investigated, lower back pain. 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 History of Any Multi-Drug Resistant Organisms: None Reported Past Surgical History: Back Surgery Additional Past Surgical History / Comment(s): back surgery in - "fixed slip disc", thyroid biopsy, skin scraping x4 for basal cell legs and forehead Past Anesthesia/Blood Transfusion Reactions: No Reported Reaction, Postoperative Nausea & Vomiting (PONV) Additional Past Anesthesia/Blood Transfusion Reaction / Comment(s): no previous Past Psychological History: No Psychological Hx Reported Smoking Status: Never smoker Past Alcohol Use History: None Reported Past Drug Use History: None Reported - Past Family History Father Family Medical History: No Reported History <Armando Yancey - Last Filed: 12/25/23 14:59> General Exam <Armando Yancey - Last Filed: 12/25/23 14:59> General appearance: alert, in no apparent distress Head exam: Present: atraumatic, normocephalic, normal inspection Eye exam: Present: normal appearance, PERRL, EOMI. Absent: scleral icterus, conjunctival injection, periorbital swelling ENT exam: Present: normal exam, mucous membranes moist Neck exam: Present: normal inspection. Absent: tenderness, meningismus, lymphadenopathy Respiratory exam: Present: normal lung sounds bilaterally. Absent: respiratory distress, wheezes, rales, rhonchi, stridor Cardiovascular Exam: Present: regular rate, normal rhythm, normal heart sounds. Absent: systolic murmur, diastolic murmur, rubs, gallop, clicks GI/Abdominal exam: Present: soft, normal bowel sounds. Absent: distended, tenderness, guarding, rebound, rigid Extremities exam: Present: normal inspection, full ROM, normal capillary refill. Absent: tenderness, pedal edema, joint swelling, calf tenderness Back exam: Present: normal inspection Neurological exam: Present: alert, oriented X3, CN II-XII intact Psychiatric exam: Present: normal affect, normal mood Skin exam: Present: warm, dry, intact, normal color. Absent: rash <Jamie Fu - Last Filed: 01/02/24 14:54> - General Exam Comments Initial Comments: Visual Physical Exam General: Well-appearing, nontoxic, no acute distress. Head: Normocephalic, atraumatic Eyes: PERRLA, EOMI ENT: Airway patent Chest: Nonlabored breathing Skin: No visual rash, normal skin tone Neuro: Alert and oriented 3 Musculoskeletal: No gross abnormalities (Armando Yancey) Course <Jamie Fu - Last Filed: 01/02/24 14:54> Vital Signs 12/25/23 12/25/23 16:03 18:28 Temperature 98.3 F 97.5 F L Pulse Rate 56 L 56 L Respiratory 16 18 Rate Blood Pressure 112/72 125/74 O2 Sat by Pulse 98 97 Oximetry - Reevaluation(s) Reevaluation #1: Medical records reviewed (Jamie Fu) Reevaluation #2: Patient symptoms unchanged (Jamie Fu) Reevaluation #3: Patient informed of results questions answered (Jamie Fu) Reevaluation #4: Was pt. sent in by a medical professional or institution (, PA, HEALTH SAFETY AND ENVIRONMENT MANAGER, urgent care, hospital, or intermediate...) When possible be specific @ -no Did you speak to anyone other than the patient for history (EMS, parent, family, police, friend...)? What history was obtained from this source @ -no Did you review nursing and triage notes (agree or disagree)? Why? @ -agree Are old charts reviewed (outside hosp., previous admission, EMS record, old EKG, old radiological studies, urgent care reports/EKG's, intermediate records)? Report findings @ -yes Differential Diagnosis (chest pain, altered mental status, abdominal pain women, abdominal pain men, vaginal bleeding, weakness, fever, dyspnea, syncope, headache, dizziness, GI bleed, back pain, seizure, CVA, palpatations, mental health, musculoskeletal)? @ -prior EKG interpreted by me (3pts min.). @ -no X-rays interpreted by me (1pt min.). @ -no CT interpreted by me (1pt min.). @ -yes negative for acute disease U/S interpreted by me (1pt. min.). @ -no What testing was considered but not performed or refused? (CT, X-rays, U/S, labs)? Why? @ -none What meds were considered but not given or refused? Why? @ -none Did you discuss the management of the patient with other professionals (professionals i.e. , PA, HEALTH SAFETY AND ENVIRONMENT MANAGER, lab, RT, psych nurse, social media editor, patient support representative, teacher, quality officer, assistant case manager)? Give summary @ -no Was smoking cessation discussed for >3mins.? @ -no Was critical care preformed (if so, how long)? @ -no Were there social determinants of health that impacted care today? How? (Homelessness, low income, unemployed, alcoholism, drug addiction, transportati on, low edu. Level, literacy, decrease access to med. care, alf, rehab)? @ -none Was there de-escalation of care discussed even if they declined (Discuss DNR or withdrawal of care, Hospice)? DNR status @ -no What co-morbidities impacted this encounter? (DM, HTN, Smoking, COPD, CAD, Cancer, CVA, ARF, Chemo, Hep., AIDS, mental health diagnosis, sleep apnea, morbid obesity)? @ -none Was patient admitted / discharged? Hospital course, mention meds given and route, prescriptions, significant lab abnormalities, going to OR and other pertinent info. @ - 78 female lost balance fall with head injury. Normal CT scan here in the ER and can be discharged home Discharge Undiagnosed new problem with uncertain prognosis? @ -no Drug Therapy requiring intensive monitoring for toxicity (Heparin, Nitro, Insulin, Cardizem)? @ -no Were any procedures done? @ -no Diagnosis/symptom? @ -Fall with head injury Acute, or Chronic, or Acute on Chronic? @ -Acute Uncomplicated (without systemic symptoms) or Complicated (systemic symptoms)? @ -Complicated Side effects of treatment? @ -no Exacerbation, Progression, or Severe Exacerbation? @ -exacerbation Poses a threat to life or bodily function? How? (Chest pain, USA, OK, pneumonia, PE, COPD, DKA, ARF, appy, cholecystitis, CVA, Diverticulitis, Homicidal, Suicidal, threat to staff... and all critical care pts) @ -yes extremes of age (Jamie Fu) Reevaluation #5: Differential Headache: Migraine, tension, cluster, carbon monoxide, central venous thrombosis, pension karma temporal arteritis, acute closure glaucoma, intercranial hemorrhage, mastoiditis, sinusitis, head injury, this is not meant to be an all-inclusive list. (Jamie Fu) Medical Decision Making <Armando Yancey - Last Filed: 12/25/23 14:59> - Radiology Data Radiology results: report reviewed (CT Brain is negative for acute disease), image reviewed <Jamie Fu - Last Filed: 01/02/24 14:54> - Medical Decision Making I performed the quick note portion of this chart. Electronically signed by Armando Yancey PA-C (Armando Yancey) 78 female lost balance fall with head injury. Normal CT scan here in the ER and can be discharged home (Jamie Fu) Disposition <Armando Yancey - Last Filed: 12/25/23 14:59> Is patient prescribed a controlled substance at d/c from ED?: No Time of Disposition: 18:00 <Jamie Fu - Last Filed: 01/02/24 14:54> Clinical Impression: Fall, Head injury, Contusion of occipital region of scalp Disposition: HOME SELF-CARE Condition: Fair Instructions (If sedation given, give patient instructions): Fall Prevention for Older Adults (ED), Head Injury (ED) Referrals: Isrrael Mueller DO [Primary Care Provider] - 1-2 days
[2023-12-25 16:14] VITALS: PULSE 56
--- NOTE | 2023-12-25 16:43 | CT ---
EXAMINATION TYPE: CT brain wo con DATE OF EXAM: 12/25/2023 COMPARISON: 02/06/2023, MRI 11/06/2023 INDICATION: head injury yesterday. Prior on pacs DLP: 1148.4 mGycm, Automated exposure control for dose reduction was used. CONTRAST: None CT of the brain is performed utilizing 3 mm thick sections through the posterior fossa and 3 mm thick sections through the remaining calvarium. Study is performed within 24 hours of arrival to the hosp ital. No abnormal hyperdensity is present to suggest an acute intracranial hemorrhage. No mass lesion is evident. Prior right frontal mass resected. There is some encephalomalacia present. Ex vacuo effect is on the right lateral ventricle. Postsurgical changes are in the frontal temporal region on the right. No acute infarcts are evident. White matter changes within the right frontal lobe appear stable from the MRI. Ventricles and sulci are appropriate for the patient age. Paranasal sinuses and mastoid air cells within the [id number] are clear. IMPRESSION: 1. Postsurgical changes right frontal region. Some underlying encephalomalacia with hypodensity wit hin the right frontal lobe white matter is stable from recent MRI. 2. No acute intracranial process radiographically apparent
[2023-12-25 18:42] VITALS: BP 125/74; RESP 18; TEMP 97.5
== END 2023-12-25 18:31 | disposition home or self-care (01) ==
LOC: EC 14:47
DX: S00.03XA Contusion of scalp, initial encounter (principal); W18.30XA Fall on same level, unspecified, initial encounter
CPT/HCPCS: 70450; 99284

== ENCOUNTER 2024-01-06 15:00 | Observation (INO) | payer MEDICARE, OTHER ==
[2024-01-06 15:48] VITALS: TEMP 98.6
--- NOTE | 2024-01-06 15:48 | ED ---
General Adult HPI - General Chief complaint: Neuro Symptoms/Deficit Stated complaint: Slurred speech Time Seen by Provider: 01/06/24 15:38 Source: patient, RN notes reviewed, old records reviewed Mode of arrival: wheelchair Limitations: no limitations - History of Present Illness Initial comments: Patient is a 79-year-old female present to the emergency department with concerns for slurred speech. Patient states she feels fine and has no complaints. And provides majority of history. She has noticed a's speech change since the past week. Patient's neighbor states this has been going on for least a couple of days. There is also question regarding balance issues. Patient denies any weakness. Patient does not have concern for slurred speech h owever states she did not notice with her previous problem either. Patient did have a fall and was in the emergency department a week ago with head CT does not reveal acute problems - Related Data Home Medications Medication Instructions Recorded Confirmed Primidone [Mysoline] 50 mg PO BID 06/05/15 01/06/24 clonazePAM [KlonoPIN] 0.5 mg PO BID 08/30/19 01/06/24 Atorvastatin [Lipitor] 40 mg PO DAILY 01/06/24 01/06/24 Cyclobenzaprine [Flexeril] 5 mg PO HS 01/06/24 01/06/24 Famotidine [Pepcid] 20 mg PO DAILY 01/06/24 01/06/24 Propranolol LA [Inderal LA] 60 mg PO DAILY 01/06/24 01/06/24 Topiramate [Topamax] 50 mg PO BID 01/06/24 01/06/24 buPROPion XL [Wellbutrin XL] 150 mg PO DAILY 01/06/24 01/06/24 levETIRAcetam [Keppra] 500 mg PO BID 01/06/24 01/06/24 Allergies Allergy/AdvReac Type Severity Reaction Status Date / Time No Known Allergies Allergy Verified 01/06/24 16:20 Review of Systems ROS Statement: Those systems with pertinent positive or pertinent negative responses have been documented in the HPI. ROS Other: All systems not noted in ROS Statement are negative. Constitutional: Denies: fever Eyes: Denies: eye pain ENT: Denies: ear pain Respiratory: Denies: cough Cardiovascular: Denies: chest pain Gastrointestinal: Denies: abdominal pain Neurological: Reports: as per HPI. Denies: headache Past Medical History Past Medical History: Cancer, GERD/Reflux, Thyroid Disorder Additional Past Medical History / Comment(s): tremors, mass on adrenal gland being investigated, lower back pain. 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 History of Any Multi-Drug Resistant Organisms: None Reported Past Surgical History: Back Surgery Additional Past Surgical History / Comment(s): back surgery in - "fixed s lip disc", thyroid biopsy, skin scraping x4 for basal cell legs and forehead, eyelid surgery Past Anesthesia/Blood Transfusion Reactions: No Reported Reaction, Postoperative Nausea & Vomiting (PONV) Additional Past Anesthesia/Blood Transfusion Reaction / Comment(s): no previous Past Psychological History: No Psychological Hx Reported Smoking Status: Current every day smoker Past Alcohol Use History: None Reported Past Drug Use History: None Reported - Past Family History Father Family Medical History: No Reported History General Exam Limitations: no limitations General appearance: alert, in no apparent distress Head exam: Present: normocephalic Eye exam: Present: normal appearance, PERRL, EOMI ENT exam: Present: normal oropharynx Neck exam: Present: normal inspection. Absent: tenderness Respiratory exam: Present: normal lung sounds bilaterally Cardiovascular Exam: Present: regular rate, normal rhythm GI/Abdominal exam: Present: soft. Absent: tenderness Extremities exam: Present: normal inspection Neurological exam: Present: alert, CN II-XII intact, other (Slurred speech is present). Absent: motor sensory deficit Expanded Neurological exam: Present: protecting the airway Motor strength exam: RUE: 5, LUE: 5, RLE: 5, LLE: 5 Eye Response: (4) open spontaneously Motor Response: (6) obeys commands Verbal Response: (5) oriented Psychiatric exam: Present: normal affect, normal mood Skin exam: Present: normal color Course Vital Signs 01/06/24 01/06/24 01/06/24 15:05 15:10 15:46 Temperature 98.6 F Pulse Rate 83 57 L 57 L Respiratory 16 18 17 Rate Blood Pressure 125/72 128/72 128/72 O2 Sat by Pulse 94 L 93 L 96 Oximetry EKG Findings - EKG Results: EKG: interpreted by ERMD (Right bundle branch block.), sinus rhythm, normal axis, normal ST/T EKG shows: bradycardia Medical Decision Making - Medical Decision Making Was pt. sent in by a medical professional or institution (JILLIAN Randolph, PHYSICS INSTRUCTOR, urgent care, hospital, or fpc...) When possible be specific @ -No Did you speak to anyone other than the patient for history (EMS, parent, family, police, friend...)? What history was obtained from this source @ -Family is present and helps provide history including symptoms that patient is unaware of Did you review nursing and triage notes (agree or disagree)? Why? @ -I reviewed and agree with nursing and triage notes Were old charts reviewed (outside hosp., previous admission, EMS record, old EKG, old radiological studies, urgent care reports/EKG's, fpc records)? Report findings @ -Previous visit and brain CT reviewed similar to today's brain CT Differential Diagnosis (chest pain, altered mental status, abdominal pain women, abdominal pain men, vaginal bleeding, weakness, fever, dyspnea, syncope, headache, dizziness, GI bleed, back pain, seizure, CVA, palpatations, mental health, musculoskeletal)? @ -Differential Weakness: Hypoglycemia, shock, sepsis, hyponatremia, anemia, infection, OK, ETOH, adverse medicine reaction, overdose, stroke, this is not meant to be an all-inclusive list. EKG interpreted by me (3pts min.). @ -As above X-rays interpreted by me (1pt min.). @ -Chest x-ray shows no acute process CT interpreted by me (1pt min.). @ -CT scan of the brain shows no acute process. Area of frontal encephalomalacia. U/S interpreted by me (1pt. min.). @ -None done What testing was considered but not performed or refused? (CT, X-rays, U/S, lab s)? Why? @ -Considered CTA however patient symptoms is greater than 24 hours What meds were considered but not given or refused? Why? @ -None Did you discuss the management of the patient with other professionals (professionals i.e. JILLIAN Randolph, PHYSICS INSTRUCTOR, lab, RT, psych nurse, social work supervisor, hardness tester, teacher, special police officer, upper caser)? Give summary @ -Case discussed with Dr. Rowe will admit covering Dr. Crain Was smoking cessation discussed for >3mins.? @ -No Was critical care preformed (if so, how long)? @ -No Were there social determinants of health that impacted care today? How? (Homelessness, low income, unemployed, alcoholism, drug addiction, transportation, low edu. Level, literacy, decrease access to med. care, detention, rehab)? @ -No Was there de-escalation of care discussed even if they declined (Discuss DNR or withdrawal of care, Hospice)? DNR status @ -No What co-morbidities impacted this encounter? (DM, HTN, Smoking, COPD, CAD, Cancer, CVA, ARF, Chemo, Hep., AIDS, mental health diagnosis, sleep apnea, morbid obesity)? @ -None Was patient admitted / discharged? Hospital course, mention meds given and route, prescriptions, significant lab abnormalities, going to OR and other pertinent info. @ -Patient presents with slurred speech and possible balance problems. No acute findings on CT. Patient is not a candidate for thrombolytics secondary to last known well greater than 4.5 hours. Risks felt to outweigh the benefits. Patient will be admitted with neurology consult. Patient may need MRI Undiagnosed new problem with uncertain prognosis? @ -No Drug Therapy requiring intensive monitoring for toxicity (Heparin, Nitro, Insulin, Cardizem)? @ -No Were any procedures done? @ -No Diagnosis/symptom? @ -CVA Acute, or Chronic, or Acute on Chronic? @ -Acute Uncomplicated (without systemic symptoms) or Complicated (systemic symptoms)? @ -Default Side effects of treatment? @ -No Exacerbation, Progression, or Severe Exacerbation? @ -No Poses a threat to life or bodily function? How? (Chest pain, USA, OK, pneumonia, PE, COPD, DKA, ARF, appy, cholecystitis, CVA, Diverticulitis, Homicidal, Suicidal, threat to staff... and all critical care pts) @ -No - Lab Data Result diagrams: 01/06/24 15:46 01/06/24 15:46 Lab Results 01/06/24 01/06/24 01/06/24 Range/Units 15:46 15:46 15:46 WBC 8.6 (3.8-10.6) k/uL RBC 4.56 (3.80-5.40) m/uL Hgb 13.4 (11.4-16.0) gm/dL Hct 43.0 (34.0-46.0) % MCV 94.1 (80.0-100.0) fL MCH 29.4 (25.0-35.0) pg MCHC 31.2 (31.0-37.0) g/dL RDW 13.5 (11.5-15.5) % Plt Count 248 (150-450) k/uL MPV 9.1 Neutrophils % 75 % Lymphocytes % 14 % Monocytes % 7 % Eosinophils % 2 % Basophils % 1 % Neutrophils # 6.5 (1.3-7.7) k/uL Lymphocytes # 1.2 (1.0-4.8) k/uL Monocytes # 0.6 (0-1.0) k/uL Eosinophils # 0.1 (0-0.7) k/uL Basophils # 0.1 (0-0.2) k/uL PT 9.6 L (10.0-12.5) sec INR 0.8 (<1.2) APTT 22.8 (22.0-30.0) sec Sodium 143 (137-145) mmol/L Potassium 3.8 (3.5-5.1) mmol/L Chloride 111 H (98-107) mmol/L Carbon Dioxide 22 (22-30) mmol/L Anion Gap 10 mmol/L BUN 23 H (7-17) mg/dL Creatinine 0.84 (0.52-1.04) mg/dL Est GFR (CKD-EPI)AfAm 77 (>60 ml/min/1.73 sqM) Est GFR (CKD-EPI)NonAf 67 (>60 ml/min/1.73 sqM) Glucose 109 H (74-99) mg/dL Calcium 9.3 (8.4-10.2) mg/dL Total Bilirubin 0.6 (0.2-1.3) mg/dL AST 34 (14-36) U/L ALT 25 (4-34) U/L Alkaline Phosphatase 95 (38-126) U/L Creatine Kinase 74 (30-135) U/L Total Protein 6.9 (6.3-8.2) g/dL Albumin 4.0 (3.5-5.0) g/dL Disposition Clinical Impression: Cerebrovascular accident (CVA) Disposition: ADMITTED IP TO THIS HOSP Is patient prescribed a controlled substance at d/c from ED?: No Referrals: Isrrael Mueller DO [Primary Care Provider] - 1-2 days Time of Disposition: 17:15
[2024-01-06 16:05] LABS: Basophils # (A) 0.1 k/uL (0-0.2); Basophils % (A) 1 %; Eosinophils # (A) 0.1 k/uL (0-0.7); Eosinophils % (A) 2 %; HGB 13.4 gm/dL (11.4-16.0); Lymphocytes # (A) 1.2 k/uL (1.0-4.8); Lymphocytes % (A) 14 %; MCH 29.4 pg (25.0-35.0); MCHC 31.2 g/dL (31.0-37.0); MCV 94.1 fL (80.0-100.0); Mean Platelet Volume 9.1; Monocytes # (A) 0.6 k/uL (0-1.0); Monocytes % (A) 7 %; Neutrophils # (A) 6.5 k/uL (1.3-7.7); Neutrophils % (A) 75 %; Platelet Count 248 k/uL (150-450); RBC 4.56 m/uL (3.80-5.40); RDW 13.5 % (11.5-15.5); WBC 8.6 k/uL (3.8-10.6)
[2024-01-06 16:17] LABS: ALT 25 U/L (4-34); AST 34 U/L (14-36); African American GFR (CKD) 77 (>60 ml/min/1.73 sqM); Alkaline Phosphatase 95 U/L (38-126); Anion Gap 10 mmol/L; Blood Urea Nitrogen 23 mg/dL (7-17); Calcium 9.3 mg/dL (8.4-10.2); Carbon Dioxide 22 mmol/L (22-30); Chloride 111 mmol/L (98-107); Creatine Kinase 74 U/L (30-135); Glucose 109 mg/dL (74-99); Non-African American GFR(CKD) 67 (>60 ml/min/1.73 sqM); Potassium 3.8 mmol/L (3.5-5.1); Sodium 143 mmol/L (137-145); Total Bilirubin 0.6 mg/dL (0.2-1.3); Total Protein 6.9 g/dL (6.3-8.2)
[2024-01-06 16:20] LABS: INR 0.8 (<1.2); Partial Thromboplastin Time 22.8 sec (22.0-30.0); Prothrombin Time 9.6 sec (10.0-12.5)
--- NOTE | 2024-01-06 16:23 | CT ---
EXAMINATION TYPE: CT brain wo con DATE OF EXAM: 01/06/2024 COMPARISON: 12/25/2023 INDICATION: SLURRED SPEECH/OFF BALANCE DLP: 1138.4 mGycm, Automated exposure control for dose reduction was used. CONTRAST: None CT of the brain is performed utilizing 3 mm thick sections through the posterior fossa and 3 mm thick sections through the remaining calvarium. Study is performed within 24 hours of arrival to the hosp ital. No abnormal hyperdensity is present to suggest an acute intracranial hemorrhage. No mass lesion is evident. No acute infarcts are evident. Appears to be encephalomalacia right frontal lobe. Ventricles and sulci are prominent for the patient age. Paranasal sinuses and mastoid air cells within the [id number] are clear. IMPRESSION: 1. No acute intracranial process. Follow-up MRI can be performed as clinically indicated. 2. 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 Findings were present previously.
--- NOTE | 2024-01-06 16:29 | XR ---
EXAMINATION TYPE: XR chest 2V DATE OF EXAM: 01/06/2024 COMPARISON: 02/06/2023 INDICATION: Altered mental status TECHNIQUE: Frontal and lateral views of the chest are obtained. FINDINGS: The heart size is normal. The pulmonary vasculature is normal. The lungs are clear. IMPRESSION: 1. No acute pulmonary process.
[2024-01-06] MEDS ORDERED: clonazePAM 0.5 MG TAB PO PRN (17:46)
[2024-01-06] MEDS: ASPIRIN 325 MG TAB PO STA (17:51)
--- NOTE | 2024-01-06 17:52 | P.HPIM ---
History of Present Illness Patient is a pleasant 79-year-old female came in with slurred speech. 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 Patient any fever or chills. Patient still has slurred speech was complaining of generalized weakness no new focal numbness or weakness. Patient continues to smoke about half to 3/4 pack of cigarettes per day and patient has slight wheeze on exam never was diagnosed with COPD. Chest x-ray did not show any significant abnormality. Patient appears to have some encephalopathy as well from medications which is cyclobenzaprine and clonazepam and patient occasionally sees things because of these. Patient is not dependent on ADLs and IADLs. REVIEW OF SYSTEMS: CONSTITUTIONAL: No fever, no malaise, no fatigue. HEENT: No recent visual problems or hearing problems. Denied any sore throat. CARDIOVASCULAR: No chest pain, orthopnea, PND, no palpitations, no syncope. PULMONARY: No shortness of breath, no cough, no hemoptysis. GASTROINTESTINAL: No diarrhea, no nausea, no vomiting, no abdominal pain. NEUROLOGICAL: No headaches, no weakness, no numbness. HEMATOLOGICAL: Denies any bleeding or petechiae. GENITOURINARY: Denies any burning micturition, frequency, or urgency. MUSCULOSKELETAL/RHEUMATOLOGICAL: Denies any joint pain, swelling, or any muscle pain. ENDOCRINE: Denies any polyuria or polydipsia. The rest of the 14-point review of systems is negative. PHYSICAL EXAMINATION: GENERAL: The patient is alert and oriented x3, not in any acute distress. Well developed, well nourished. HEENT: Pupils are round and equally reacting to light. EOMI. No scleral icterus. No conjunctival pallor. Normocephalic, atraumatic. No pharyngeal erythema. No thyromegaly. CARDIOVASCULAR: S1 and S2 present. No murmurs, rubs, or gallops. PULMONARY: Mild wheezing on the left posterior inferior and left anterior chest no crackles were appreciated. ABDOMEN: Soft, nontender, nondistended, normoactive bowel sounds. No palpable organomegaly. MUSCULOSKELETAL: No joint swelling or deformity. EXTREMITIES: No cyanosis, clubbing, or pedal edema. NEUROLOGICAL: Gross neurological examination did not reveal any new focal deficits. Slight drift in the left hand and a facial droop is probably secondary to her frontal lobe surgery patient does have slurred speech SKIN: No rashes. Assessment and plan -Slurred speech will need to rule out stroke/TIA neurology will evaluate the patient. Carotid Doppler echocardiogram lipid panel were ordered. Physical therapy occupational therapy and speech therapy evaluation. 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 History of Any Multi-Drug Resistant Organisms: None Reported Past Surgical History: Back Surgery Additional Past Surgical History / Comment(s): back surgery in - "fixed slip disc", thyroid biopsy, skin scraping x4 for basal cell legs and forehead, eyelid surgery Past Anesthesia/Blood Transfusion Reactions: No Reported Reaction, Postoperative Nausea & Vomiting (PONV) Additional Past Anesthesia/Blood Transfusion Reaction / Comment(s): no previous Past Psychological History: No Psychological Hx Reported Smoking Status: Current every day smoker Past Alcohol Use History: None Reported Past Drug Use History: None Reported - Past Family History Father Family Medical History: No Reported History Medications and Allergies Home Medications Medication Instructions Recorded Confirmed Type Primidone [Mysoline] 50 mg PO BID 06/05/15 01/06/24 History clonazePAM [KlonoPIN] 0.5 mg PO BID 08/30/19 01/06/24 History Atorvastatin [Lipitor] 40 mg PO DAILY 01/06/24 01/06/24 History Cyclobenzaprine [Flexeril] 5 mg PO HS 01/06/24 01/06/24 History Famotidine [Pepcid] 20 mg PO DAILY 01/06/24 01/06/24 History Propranolol LA [Inderal LA] 60 mg PO DAILY 01/06/24 01/06/24 History Topiramate [Topamax] 50 mg PO BID 01/06/24 01/06/24 History buPROPion XL [Wellbutrin XL] 150 mg PO DAILY 01/06/24 01/06/24 History levETIRAcetam [Keppra] 500 mg PO BID 01/06/24 01/06/24 History Allergies Allergy/AdvReac Type Severity Reaction Status Date / Time No Known Allergies Allergy Verified 01/06/24 16:20 Physical Exam Vitals: Vital Signs Temp Pulse Resp BP Pulse Ox 01/06/24 17:45 56 L 18 134/69 94 L 01/06/24 15:46 57 L 17 128/72 96 01/06/24 15:10 57 L 18 128/72 93 L 01/06/24 15:05 98.6 F 83 16 125/72 94 L Intake and Output 01/06/24 01/06/24 01/06/24 06:59 14:59 22:59 Other: Weight 78.925 kg Results CBC & Chem 7: 01/06/24 15:46 01/06/24 15:46 Labs: Abnormal Lab Results - Last 24 Hours (Table) 01/06/24 01/06/24 Range/Units 15:46 15:46 PT 9.6 L (10.0-12.5) sec Chloride 111 H (98-107) mmol/L BUN 23 H (7-17) mg/dL Glucose 109 H (74-99) mg/dL
[2024-01-06] MEDS: SODIUM CHLORIDE 0.9% 1,000 ML IV SCH (18:03)
[2024-01-06 18:11] VITALS: BP 134/69; RESP 18
[2024-01-06] MEDS: NICOTINE 14MG/24HR PATCH TRANSDERM SCH (18:44)
--- NOTE | 2024-01-06 18:44 | US ---
EXAMINATION TYPE: US carotid duplex BILAT DATE OF EXAM: 01/06/2024 COMPARISON: NONE CLINICAL INDICATION: Female, 79 years old with history of Stenosis; Slurred speech, imbalance TECHNIQUE: Carotid duplex ultrasound examination. Indirect Doppler criteria was utilized. FINDINGS: EXAM MEASUREMENTS: RIGHT: Peak Systolic Velocity (PSV) cm/sec ----- Right CCA: 75.3 ----- Right ICA: 84.0 ----- Right ECA: 65.6 ICA/CCA ratio: 1.12 RIGHT: End Diastole cm/sec ----- Right CCA: 21.1 ----- Right ICA: 28.5 ----- Right ECA: 11.5 LEFT: Peak Systolic Velocity (PSV) cm/sec ----- Left CCA: 66.1 ----- Left ICA: 110 ----- Left ECA: 65.6 ICA/CCA ratio: 1.66 LEFT: End Diastole cm/sec ----- Left CCA: 19.7 ----- Left ICA: 38.4 ----- Left ECA: 10.6 VERTEBRALS (direction of flow): Right Vertebral: Antegrade Left Vertebral: Antegrade Rhythm: Normal OPERATOR VACUUM NOTES: Mild plaque bilateral bifurcations. No evidence of increased velocities IMPRESSION: Atheromatous plaquing without significant flow-limiting stenosis based on velocities. Criteria for Assigning % of Stenosis / Diameter reduction (Estimation based on the indirect measurements of the internal carotid artery velocities (ICA PSV). 1. Normal (no stenosis)=ICA PSV < 125 cm/s: ratio < 2.0: ICA EDV<40 cm/s. 2. Less than 50% stenosis=ICA PSV < 125 cm/s: ratio < 2.0: ICA EDV<40 cm/s. 3. 50 to 69% stenosis=ICA PSV of 125 to 230 cm/s: ration 2.0 ? 4.0: ICA EDV 40-100 cm/s. 4. Greater than 70% stenosis to near occlusion= ICA PSV > 230 cm/s: ratio > 4.0: ICA EDV > 100 cm/s. 5. Near occlusion= ICA PSV velocities may be low or undetectable: variable ratio and ICA EDV. 6. Total occlusion=unable to detect flow.
[2024-01-06] MEDS: IPRATROPIUM-ALBUTEROL 3 ML NEB INHALATION PRN (19:32)
[2024-01-06] MEDS: BUDESONIDE 0.5 MG/2 ML NEBU INHALATION SCH (19:32)
[2024-01-06 19:48] VITALS: PULSE 55
[2024-01-06] MEDS ORDERED: CYCLOBENZAPRINE 5 MG TAB PO SCH (21:00)
[2024-01-06] MEDS ORDERED: PRIMIDONE 50 MG TAB PO SCH (21:00)
[2024-01-06] MEDS ORDERED: levETIRAcetam 500 MG TAB PO SCH (21:00)
[2024-01-06] MEDS ORDERED: TOPIRAMATE 25 MG TAB PO SCH (21:00)
[2024-01-06] MEDS ORDERED: clonazePAM 0.5 MG TAB PO SCH (21:00)
[2024-01-07 08:22] LABS: Chol/HDL Ratio 3.56 Ratio; LDL Cholesterol,Calculated 105.1 mg/dL (0.0-131.0)
[2024-01-07] MEDS ORDERED: ATORVASTATIN 40 MG TAB PO SCH (09:00)
[2024-01-07] MEDS ORDERED: ENOXAPARIN 40 MG/0.4 ML SYRINGE SQ SCH (09:00)
[2024-01-07] MEDS ORDERED: buPROPion XL 150 MG TAB.ER.24H PO SCH (09:00)
[2024-01-07] MEDS ORDERED: PROPRANOLOL LA 60 MG CAP.SA.24H PO SCH (09:00)
[2024-01-07] MEDS ORDERED: FAMOTIDINE 20 MG TAB PO SCH (09:00)
[2024-01-07] MEDS ORDERED: ASPIRIN 325 MG TAB PO SCH (09:00)
--- NOTE | 2024-01-07 10:07 | P.DS ---
Providers Date of admission: 01/06/24 17:16 Expected date of discharge: 01/06/24 Attending physician: Scott Rowe Consults: 01/06/24 17:16 Consult Physician Urgent Consulting Provider: Dutch Howard Consult Reason/Comments: cva Do you want consulting provider notified?: Yes Primary care physician: Isrrael Mueller [facility] Course: Patient left AGAINST MEDICAL ADVICE Plan - Discharge Summary New Discharge Prescriptions: No Action Primidone [Mysoline] 50 mg PO BID clonazePAM [KlonoPIN] 0.5 mg PO BID Topiramate [Topamax] 50 mg PO BID Famotidine [Pepcid] 20 mg PO DAILY levETIRAcetam [Keppra] 500 mg PO BID buPROPion XL [Wellbutrin XL] 150 mg PO DAILY Propranolol LA [Inderal LA] 60 mg PO DAILY Atorvastatin [Lipitor] 40 mg PO DAILY Cyclobenzaprine [Flexeril] 5 mg PO HS Discharge Medication List Primidone [Mysoline] 50 mg PO BID 06/05/15 [History] clonazePAM [KlonoPIN] 0.5 mg PO BID 08/30/19 [History] Atorvastatin [Lipitor] 40 mg PO DAILY 01/06/24 [History] Cyclobenzaprine [Flexeril] 5 mg PO HS 01/06/24 [History] Famotidine [Pepcid] 20 mg PO DAILY 01/06/24 [History] Propranolol LA [Inderal LA] 60 mg PO DAILY 01/06/24 [History] Topiramate [Topamax] 50 mg PO BID 01/06/24 [History] buPROPion XL [Wellbutrin XL] 150 mg PO DAILY 01/06/24 [History] levETIRAcetam [Keppra] 500 mg PO BID 01/06/24 [History] Follow up Appointment(s)/Referral(s): Isrrael Mueller DO [Primary Care Provider] - 1-2 days Discharge Disposition: LEFT AGAINST MEDICAL ADVICE
== END 2024-01-06 21:53 | disposition left against medical advice (07) ==
LOC: EC 15:00 → 3SCARD 17:16
PROVIDERS: ADMIT Internal Medicine; ATTEND Internal Medicine
DX: I63.9 Cerebral infarction, unspecified (principal); R47.81 Slurred speech; Z53.29 Procedure and treatment not carried out because of patient's decision for other reasons; K21.9 Gastro-esophageal reflux disease without esophagitis; E07.9 Disorder of thyroid, unspecified; Z85.828 Personal history of other malignant neoplasm of skin
CPT/HCPCS: 99285; 36415; 94640; 93005; 80053; 80061; 80177; 82550; 85025; 85610; 85730; 71046; 93880; 70450; G0378; S4990

== ENCOUNTER 2024-01-06 22:26 | Observation (INO) | payer MEDICARE, OTHER ==
[2024-01-07] MEDS ORDERED: ACETAMINOPHEN TAB 325 MG TAB PO PRN (00:42)
[2024-01-07] MEDS ORDERED: NALOXONE 0.4 MG/ML 1 ML VIAL IV PRN (00:42)
--- NOTE | 2024-01-07 01:37 | ED ---
General Adult HPI - General Chief complaint: Recheck/Abnormal Lab/Rx Stated complaint: slurred speach,dizziness Time Seen by Provider: 01/06/24 23:01 Source: patient, RN notes reviewed, old records reviewed Mode of arrival: ambulatory Limitations: no limitations - History of Present Illness Initial comments: 71-year-old female who had left earlier today AGAINST MEDICAL ADVICE. Patient was evaluated for confusion and slurred speech. She was admitted with neurology on consult after receiving laboratory testing, and CT imaging as well as ultrasound of the carotid arteries. She has a previous history of intracranial mass status postresection approximately 1 year ago. She has been more confused with unsteady gait and slurred speech over the past 3 days. Patient has no new complaints and is agreeable with admission at this time. - Related Data Home Medications Medication Instructions Recorded Confirmed Primidone [Mysoline] 50 mg PO BID 06/05/15 01/06/24 clonazePAM [KlonoPIN] 0.5 mg PO BID 08/30/19 01/06/24 Atorvastatin [Lipitor] 40 mg PO DAILY 01/06/24 01/06/24 Cyclobenzaprine [Flexeril] 5 mg PO HS 01/06/24 01/06/24 Famotidine [Pepcid] 20 mg PO DAILY 01/06/24 01/06/24 Propranolol LA [Inderal LA] 60 mg PO DAILY 01/06/24 01/06/24 Topiramate [Topamax] 50 mg PO BID 01/06/24 01/06/24 buPROPion XL [Wellbutrin XL] 150 mg PO DAILY 01/06/24 01/06/24 levETIRAcetam [Keppra] 500 mg PO BID 01/06/24 01/06/24 Allergies Allergy/AdvReac Type Severity Reaction Status Date / Time No Known Allergies Allergy Verified 01/06/24 22:34 Review of Systems ROS Statement: Those systems with pertinent positive or pertinent negative responses have been documented in the HPI. ROS Other: All systems not noted in ROS Statement are negative. Past Medical History Past Medical History: Cancer, GERD/Reflux, Thyroid Disorder Additional Past Medical History / Comment(s): tremors, mass on adrenal gland being investigated, lower back pain. 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 History of Any Multi-Drug Resistant Organisms: None Reported Past Surgical History: Back Surgery Additional Past Surgical History / Comment(s): back surgery in - "fixed slip disc", thyroid biopsy, skin scraping x4 for basal cell legs and forehead, eyelid surgery Past Anesthesia/Blood Transfusion Reactions: No Reported Reaction, Postoperative Nausea & Vomiting (PONV) Additional Past Anesthesia/Blood Transfusion Reaction / Comment(s): no previous Past Psychological History: No Psychological Hx Reported Smoking Status: Current every day smoker Past Alcohol Use History: None Reported Past Drug Use History: None Reported - Past Family History Father Family Medical History: No Reported History General Exam Limitations: no limitations General appearance: alert, in no apparent distress Head exam: Present: atraumatic, normocephalic Eye exam: Present: normal appearance, PERRL ENT exam: Present: normal exam Neck exam: Present: normal inspection Respiratory exam: Present: normal lung sounds bilaterally. Absent: respiratory distress, wheezes Cardiovascular Exam: Present: regular rate, normal rhythm GI/Abdominal exam: Present: soft. Absent: distended, tenderness, guarding Extremities exam: Present: normal inspection Neurological exam: Present: alert, motor sensory deficit (Dysarthria, left upper extremity ataxia). Absent: oriented X3 Skin exam: Present: warm, dry, intact Course Vital Signs 01/06/24 22:31 Temperature 97.3 F L Pulse Rate 59 L Respiratory 18 Rate Blood Pressure 153/83 O2 Sat by Pulse 95 Oximetry Medical Decision Making - Medical Decision Making Was pt. sent in by a medical professional or institution ( [place], COUNTY COMMISSIONER, urgent care, hospital, or residential...) When possible be specific @ -No Did you speak to anyone other than the patient for history (EMS, parent, family, police, friend...)? What history was obtained from this source @ -[Since niece Did you review nursing and triage notes (agree or disagree)? Why? @ -I reviewed and agree with nursing and triage notes Were old charts reviewed (outside hosp., previous admission, EMS record, old EKG, old radiological studies, urgent care reports/EKG's, residential records)? Report findings @ -No old charts were reviewed MDM differential altered mental status. EKG interpreted by me (3pts min.). @Sinus bradycardia, right bundle branch block, rate of 54, WI interval 194, QRS duration 145, QTc 429, similar compared to prior. X-rays interpreted by me (1pt min.). @ -None done CT interpreted by me (1pt min.). @ -None done U/S interpreted by me (1pt. min.). @ -None done What testing was considered but not performed or refused? (CT, X-rays, U/S, labs)? Why? @ -None What meds were considered but not given or refused? Why? @ -None Did you discuss the management of the patient with other professionals (professionals i.e. , [place], COUNTY COMMISSIONER, lab, RT, psych nurse, social media marketing analyst, road sign installer, teacher, administrative services officer, gearcase assembler)? Give summary @ -EMH Was smoking cessation discussed for >3mins.? @ -No Was critical care preformed (if so, how long)? @ -No Were there social determinants of health that impacted care today? How? (Homelessness, low income, unemployed, alcoholism, drug addiction, transportation, low edu. Level, literacy, decrease access to med. care, care home, rehab)? @ -No Was there de-escalation of care discussed even if they declined (Discuss DNR or withdrawal of care, Hospice)? DNR status @ -No What co-morbidities impacted this encounter? (DM, HTN, Smoking, COPD, CAD, Cancer, CVA, ARF, Chemo, Hep., AIDS, mental health diagnosis, sleep apnea, morbid obesity)? @ -Remote history of brain mass Was patient admitted / discharged? Hospital course, mention meds given and route, prescriptions, significant lab abnormalities, going to OR and other pertinent info. @ -Patient left AGAINST MEDICAL ADVICE with confusion and slurred speech. Patient will be readmitted, IV is established and repeat laboratory studies have been ordered. Neurology is placed on consult for this patient. She will be admitted to the same service she was admitted to within the past 12 hours. Undiagnosed new problem with uncertain prognosis? @ -No Drug Therapy requiring intensive monitoring for toxicity (Heparin, Nitro, Insulin, Cardizem)? @ -No Were any procedures done? @ -No Diagnosis/symptom? @Altered mental status, slurred speech Acute, or Chronic, or Acute on Chronic? @ -Acute Uncomplicated (without systemic symptoms) or Complicated (systemic symptoms)? @ -Default Side effects of treatment? @ -No Exacerbation, Progression, or Severe Exacerbation? @ -No Poses a threat to life or bodily function? How? (Chest pain, [place], [place], pneumonia, PE, COPD, DKA, ARF, appy, cholecystitis, CVA, Diverticulitis, Homicidal, Suicidal, threat to staff... and all critical care pts) @ yes, CVA Disposition Clinical Impression: AMS (altered mental status), Cerebrovascular accident (CVA) Disposition: ADMITTED IP TO THIS HOSP Condition: Stable Is patient prescribed a controlled substance at d/c from ED?: No Time of Disposition: 01:36
[2024-01-07 04:19] LABS: Appearance,Urine Cloudy (Clear); Bacteria,Urine Many /hpf; Bilirubin,Urine Negative (Negative); Blood,Urine Small (Negative); Color,Urine Yellow; Glucose,Urine (UA) Negative (Negative); Hyaline Casts,Urine 3 /lpf (0-2); Ketones,Urine Negative (Negative); Leukocyte Esterase,Urine Large (Negative); Mucus,Urine Occasional /hpf; Nitrite,Urine Positive (Negative); PH, Urine 5.5 (5.0-8.0); Protein,Urine Trace (Negative); RBC,Urine 3 /hpf (0-5); Specific Gravity,Urine 1.025 (1.001-1.035); Squamous Epithelial Cell,Urine 2 /hpf (0-4); Urobilinogen,Urine <2.0 mg/dL (<2.0); WBC,Urine 65 /hpf (0-5)
[2024-01-07 04:33] LABS: ALT 24 U/L (4-34); AST 34 U/L (14-36); African American GFR (CKD) 84 (>60 ml/min/1.73 sqM); Albumin 3.8 g/dL (3.5-5.0); Alkaline Phosphatase 88 U/L (38-126); Anion Gap 8 mmol/L; Blood Urea Nitrogen 24 mg/dL (7-17); Calcium 9.4 mg/dL (8.4-10.2); Carbon Dioxide 23 mmol/L (22-30); Chloride 112 mmol/L (98-107); Glucose 91 mg/dL (74-99); Non-African American GFR(CKD) 73 (>60 ml/min/1.73 sqM); Potassium 3.6 mmol/L (3.5-5.1); Sodium 143 mmol/L (137-145); Total Bilirubin 0.6 mg/dL (0.2-1.3); Total Protein 6.5 g/dL (6.3-8.2)
[2024-01-07 04:45] LABS: Basophils % (A) 0 %; Eosinophils # (A) 0.2 k/uL (0-0.7); Eosinophils % (A) 2 %; HCT 42.1 % (34.0-46.0); HGB 12.9 gm/dL (11.4-16.0); Lymphocytes # (A) 1.4 k/uL (1.0-4.8); Lymphocytes % (A) 17 %; MCH 28.9 pg (25.0-35.0); MCHC 30.6 g/dL (31.0-37.0); MCV 94.3 fL (80.0-100.0); Mean Platelet Volume 9.1; Monocytes # (A) 0.7 k/uL (0-1.0); Monocytes % (A) 8 %; Neutrophils # (A) 6.1 k/uL (1.3-7.7); Neutrophils % (A) 71 %; Platelet Count 219 k/uL (150-450); RBC 4.46 m/uL (3.80-5.40); RDW 13.5 % (11.5-15.5); WBC 8.6 k/uL (3.8-10.6)
[2024-01-07] MEDS: SODIUM CHLORIDE 0.9% 1,000 ML IV SCH (05:03)
[2024-01-07] MEDS: cefTRIAXone IN SWFI 1,000 MG/10 ML SYRINGE IVP STA (05:05)
--- NOTE | 2024-01-07 10:08 | P.HPIM ---
History of Present Illness Patient is a pleasant 79-year-old female came in with slurred speech. Patient was here in the hospital yesterday left AGAINST MEDICAL ADVICE. 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 Patient any fever or chills. Patient still has slurred speech was complaining of generalized weakness no new focal numbness or weakness. Patient continues to smoke about half to 3/4 pack of cigarettes per day and patient has slight wheeze on exam never was diagnosed with COPD. Chest x-ray did not show any significant abnormality. Patient appears to have some encephalopathy as well from medications which is cyclobenzaprine and clonazepam and patient occasionally sees things because of these. Patient is not dependent on ADLs and IADLs. Patient had a carotid Doppler which did not show any significant flow-limiting stenosis. REVIEW OF SYSTEMS: CONSTITUTIONAL: No fever, no malaise, no fatigue. HEENT: No recent visual problems or hearing problems. Denied any sore throat. CARDIOVASCULAR: No chest pain, orthopnea, PND, no palpitations, no syncope. PULMONARY: No shortness of breath, no cough, no hemoptysis. GASTROINTESTINAL: No diarrhea, no nausea, no vomiting, no abdominal pain. NEUROLOGICAL: No headaches, no weakness, no numbness. HEMATOLOGICAL: Denies any bleeding or petechiae. GENITOURINARY: Denies any burning micturition, frequency, or urgency. MUSCULOSKELETAL/RHEUMATOLOGICAL: Denies any joint pain, swelling, or any muscle pain. ENDOCRINE: Denies any polyuria or polydipsia. The rest of the 14-point review of systems is negative. PHYSICAL EXAMINATION: GENERAL: The patient is alert and oriented x3, not in any acute distress. Well developed, well nourished. HEENT: Pupils are round and equally reacting to light. EOMI. No scleral icterus. No conjunctival pallor. Normocephalic, atraumatic. No pharyngeal erythema. No thyromegaly. CARDIOVASCULAR: S1 and S2 present. No murmurs, rubs, or gallops. PULMONARY: Mild wheezing on the left posterior inferior and left anterior chest no crackles were appreciated. ABDOMEN: Soft, nontender, nondistended, normoactive bowel sounds. No palpable organomegaly. MUSCULOSKELETAL: No joint swelling or deformity. EXTREMITIES: No cyanosis, clubbing, or pedal edema. NEUROLOGICAL: Gross neurological examination did not reveal any new focal deficits. Slight drift in the left hand and a facial droop is probably secondary to her frontal lobe surgery patient does have slurred speech SKIN: No rashes. Assessment and plan -Slurred speech will need to rule out stroke/TIA neurology will evaluate the patient. Carotid Doppler echocardiogram lipid panel were ordered. Physical therapy occupational therapy and speech therapy evaluation. 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 History of Any Multi-Drug Resistant Organisms: None Reported Past Surgical History: Back Surgery Additional Past Surgical History / Comment(s): back surgery in - "fixed slip disc", thyroid biopsy, skin scraping x4 for basal cell legs and forehead, eyelid surgery Past Anesthesia/Blood Transfusion Reactions: No Reported Reaction, Postoperative Nausea & Vomiting (PONV) Additional Past Anesthesia/Blood Transfusion Reaction / Comment(s): no previous Past Psychological History: No Psychological Hx Reported Smoking Status: Current every day smoker Past Alcohol Use History: None Reported Past Drug Use History: None Reported - Past Family History Father Family Medical History: No Reported History Medications and Allergies Home Medications Medication Instructions Recorded Confirmed Type Primidone [Mysoline] 50 mg PO BID 06/05/15 01/07/24 History clonazePAM [KlonoPIN] 0.5 mg PO BID 08/30/19 01/07/24 History Atorvastatin [Lipitor] 40 mg PO DAILY 01/06/24 01/07/24 History Cyclobenzaprine [Flexeril] 5 mg PO HS 01/06/24 01/07/24 History Famotidine [Pepcid] 20 mg PO DAILY 01/06/24 01/07/24 History Propranolol LA [Inderal LA] 60 mg PO DAILY 01/06/24 01/07/24 History Topiramate [Topamax] 50 mg PO BID 01/06/24 01/07/24 History buPROPion XL [Wellbutrin XL] 150 mg PO DAILY 01/06/24 01/07/24 History levETIRAcetam [Keppra] 500 mg PO BID 01/06/24 01/07/24 History Allergies Allergy/AdvReac Type Severity Reaction Status Date / Time No Known Allergies Allergy Verified 01/07/24 09:34 Physical Exam Vitals: Vital Signs Temp Pulse Resp BP Pulse Ox 01/07/24 06:15 58 L 141/74 93 L 01/07/24 05:18 58 L 21 156/81 94 L 01/07/24 03:30 54 L 20 126/75 96 01/06/24 22:31 97.3 F L 59 L 18 153/83 95 Intake and Output 01/06/24 01/07/24 01/07/24 22:59 06:59 14:59 Other: Weight 77.111 kg Results CBC & Chem 7: 01/07/24 04:04 01/07/24 04:04 Labs: Abnormal Lab Results - Last 24 Hours (Table) 01/07/24 01/07/24 01/07/24 Range/Units 03:15 04:04 04:04 MCHC 30.6 L (31.0-37.0) g/dL Chloride 112 H (98-107) mmol/L BUN 24 H (7-17) mg/dL Urine Appearance Cloudy H (Clear) Urine Protein Trace H (Negative) Urine Blood Small H (Negative) Urine Nitrite Positive H (Negative) Ur Leukocyte Esterase Large H (Negative) Urine WBC 65 H (0-5) /hpf Urine Bacteria Many H (None) /hpf Hyaline Casts 3 H (0-2) /lpf Urine Mucus Occasional H (None) /hpf
[2024-01-07] MEDS ORDERED: IPRATROPIUM-ALBUTEROL 3 ML NEB INHALATION PRN (10:11)
[2024-01-07] MEDS: TOPIRAMATE 25 MG TAB PO SCH (10:32)
[2024-01-07] MEDS: ATORVASTATIN 40 MG TAB PO SCH (10:32)
[2024-01-07] MEDS: buPROPion XL 150 MG TAB.ER.24H PO SCH (10:32)
[2024-01-07] MEDS: NICOTINE 21MG/24HR PATCH TRANSDERM SCH (10:32)
[2024-01-07] MEDS: IPRATROPIUM-ALBUTEROL 3 ML NEB INHALATION SCH (12:55)
[2024-01-07 20:14] LABS: Glucose,Whole Blood 88 mg/dL (70-110)
[2024-01-07] MEDS: levETIRAcetam 500 MG TAB PO SCH (20:24)
[2024-01-07] MEDS: PRIMIDONE 50 MG TAB PO SCH (20:25)
[2024-01-07] MEDS: clonazePAM 0.5 MG TAB PO SCH (20:25)
[2024-01-07] MEDS: BUDESONIDE 0.5 MG/2 ML NEBU INHALATION SCH (20:40)
--- NOTE | 2024-01-08 00:06 | P.CNNES ---
History of Present Illness Consult date: 01/07/24 Requesting physician: Armand Hatch Reason for Consult: CVA History of Present Illness: Patient is a 79-year-old left-handed female with history of malignant brain tumor, status postresection followed by radiation therapy, was brought to the hospital by patient's niece yesterday at 10:26 PM for altered mental status. 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 Patient herself has no children. Patient walks by herself, does not use any assistive device. Patient was apparently acting not right, with slurred speech very confused, kept on falling and was feeling very weak. Patient's niece who saw her past weekend on 12/30/2023 and she was doing well. Patient's neighbor see her every day in the last few days she was not acting right. Patient states her symptoms started on 01/03/2024, when she did not remember, not making sense. Therefore patient's niece brought her to the hospital. Patient's niece mentions that last night in the ER she was talking "strange things", not making sense. Family has not noticed any facial droop, or any problem with the patient. Patient's niece admits that patient is having some stairs at times. Vital signs on arrival blood pressure 153/83, pulse rate 59 temperature 97.3. Blood test shows normal CBC, CMP, UA shows positive nitrite, and large amount of leukocyte esterase and 65 WBC. 2 epithelial cells. Many bacteria. EKG showed sinus bradycardia. CT head showed no acute intracranial process. 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 On my review, there is evidence of postoperative encephalomalacia right frontal region. There is slight prominence of the ventricles, slightly more than the amount of cortical atrophy. Slightly concerning for NPH. Patient was diagnosed with brain tumor in the right frontal lobe in February 2023 and underwent resection on 02/08/2023 at [facility]. It was diagnosed after patient was acting confused, weak, not acting right, not taking care of herself. Workup revealed large right frontal tumor. After craniotomy, patient underwent 6 weeks of radiation therapy, 5 days a week. After she was stabilized, she was doing well, taking care of herself, working in the yard, taking care of her sister although she has to struggle slightly more because of all the illness. No history of seizures. She was doing well until the symptoms started last week as mentioned above. Patient never has any history of seizures. Home medications include Flexeril, Lipitor 40 mg, propranolol LA 60 mg daily, Wellbutrin XL, 150 mg daily, Keppra 500 mg twice daily, Pepcid, Topamax 50 mg twice daily, clonazepam 0.5 mg twice daily and primidone 50 mg twice daily. Patient currently smokes half pack per day. She used to smoke 1 pack/day. She has been smoking since age 20. She does have history of diabetes. Patient has history of tremors for which patient follows up with Dr. Aiken. Patient also visited ER on 12/25/2023 when she fell in the tub while washing her feet. She lost balance. She did hit her head at that time. Review of Systems Constitutional: Denies chills, Denies fever Eyes: denies blurred vision, denies pain, denies loss of peripheral vision Ears: deny: decreased hearing, ear discharge Ears, nose, mouth and throat: Denies headache, Denies sore throat Cardiovascular: Denies chest pain, Denies shortness of breath Respiratory: Denies cough, Denies excessive sputum Gastrointestinal: Denies abdominal pain, Denies diarrhea, Denies nausea, Denies vomiting Musculoskeletal: Denies myalgias, Denies neck pain Integumentary: Denies pruritus, Denies rash Neurological: Reports as per HPI Past Medical History Past Medical History: Cancer, GERD/Reflux, Thyroid Disorder Additional Past Medical History / Comment(s): tremors, mass on adrenal gland being investigated, lower back pain. 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 History of Any Multi-Drug Resistant Organisms: None Reported Past Surgical History: Back Surgery Additional Past Surgical History / Comment(s): back surgery in - "fixed slip disc", thyroid biopsy, skin scraping x4 for basal cell legs and forehead, eyelid surgery Past Anesthesia/Blood Transfusion Reactions: No Reported Reaction, Postoperative Nausea & Vomiting (PONV) Additional Past Anesthesia/Blood Transfusion Reaction / Comment(s): no previous Past Psychological History: No Psychological Hx Reported Smoking Status: Current every day smoker Past Alcohol Use History: None Reported Additional Past Alcohol Use History / Comment(s): pt doesn't want info on smoking cessation - 08/30/19 Past Drug Use History: None Reported - Past Family History Father Family Medical History: No Reported History Medications and Allergies Home Medications Medication Instructions Recorded Confirmed Type Primidone [Mysoline] 50 mg PO BID 06/05/15 01/07/24 History clonazePAM [KlonoPIN] 0.5 mg PO BID 08/30/19 01/07/24 History Atorvastatin [Lipitor] 40 mg PO DAILY 01/06/24 01/07/24 History Cyclobenzaprine [Flexeril] 5 mg PO HS 01/06/24 01/07/24 History Famotidine [Pepcid] 20 mg PO DAILY 01/06/24 01/07/24 History Propranolol LA [Inderal LA] 60 mg PO DAILY 01/06/24 01/07/24 History Topiramate [Topamax] 50 mg PO BID 01/06/24 01/07/24 History buPROPion XL [Wellbutrin XL] 150 mg PO DAILY 01/06/24 01/07/24 History levETIRAcetam [Keppra] 500 mg PO BID 01/06/24 01/07/24 History Allergies Allergy/AdvReac Type Severity Reaction Status Date / Time No Known Allergies Allergy Verified 01/07/24 09:34 Physical Examination - Vital Signs Vital Signs: Vital Signs Temp Pulse Pulse Resp BP BP Pulse Ox 01/07/24 20:20 71 01/07/24 20:10 71 16 169/77 94 L 01/07/24 17:17 97.7 F 72 16 145/68 92 L 01/07/24 16:07 68 01/07/24 16:00 97.7 F 63 16 143/62 92 L 01/07/24 15:54 66 01/07/24 14:00 72 01/07/24 10:33 67 18 150/78 93 L 01/07/24 06:15 58 L 141/74 93 L 01/07/24 05:18 58 L 21 156/81 94 L 01/07/24 03:30 54 L 20 126/75 96 01/06/24 22:31 97.3 F L 59 L 18 153/83 95 Intake and Output 01/07/24 01/07/24 01/07/24 06:59 14:59 22:59 Intake Total 366 Balance 366 Intake: IV 10 Invasive Line 1 10 Oral 356 Other: Voiding Method Toilet Toilet # Voids 2 # Bowel Movements 2 Weight 77.111 kg Reexamination patient is an elderly female, very pleasant, in no acute distress. Patient is alert awake oriented to time place and person. Patient knows it is 01/07/2024 and that she is in [facility] in [facility] and name of the current president. Speech and language functions are normal. Patient can name and repeat very well. No aphasia or dysarthria. Attention, concentration and fund of knowledge is adequate. On cranial nerve examination, pupils are equal, round and reacting to light, visual villegas are full on confrontation, with no neglect on double simultaneous stimulation. Extraocular muscles are intact with no nystagmus. Face is symmetric, tongue protrudes to the midline. Palatal elevation and sensation normal, hearing and shoulder shrug normal, facial sensation normal. On muscle strength testing, there is no pronator drift and the strength is normal in arms and legs distally and proximally. Deep tendon reflexes are symmetric 1 at the biceps, 1 brachioradialis, 1+ at the knees, 1+ ankles and plantars downgoing bilaterally. Sensory to touch is equal with no neglect on double simultaneous stimulation. Cerebellar function showed no ataxia for yardsv-ed-xrss testing, although patient was slightly shaky bilaterally. No dysdiadochokinesia. No ataxia for gmwy-ew-xine testing on either side. Tone is mildly increased on the right but normal on the left and bulk of muscles normal. Patient is appears slightly bradykinetic. No obvious tremors at rest noted. Gait: Patient walks with a slight festinating gait. Her armswing was okay. On general examination, there is no carotid bruit or murmur, S1-S2 audible. Chest is clear on consultation. Abdomen is soft nontender. No organomegaly, bowel sounds present. Peripheral pulses are present. No peripheral edema. Results - Laboratory Findings CBC and BMP: 01/07/24 04:04 01/07/24 04:04 Abnormal Lab Findings: Abnormal Labs 01/07/24 01/07/24 01/07/24 03:15 04:04 04:04 MCHC 30.6 L Chloride 112 H BUN 24 H Urine Appearance Cloudy H Urine Protein Trace H Urine Blood Small H Urine Nitrite Positive H Ur Leukocyte Esterase Large H Urine WBC 65 H Urine Bacteria Many H Hyaline Casts 3 H Urine Mucus Occasional H Assessment and Plan Assessment: * Altered mental status, likely due to acute UTI. * Abnormal CT head, with evidence of mild prominence of the ventricles, concerning for possible NPH. * History of right frontal brain tumor, status post craniotomy followed by radiation therapy in February 2023 * History of tremors, follows up with Dr. Aiken Plan: * I discussed about obtaining an MRI of the brain. Patient states that she is scheduled for MRI through her oncologist on 02/12/2024, therefore she wanted to hold off on it. * Carotid Doppler revealed atheromatous plaquing without significant flow- limiting stenosis based on velocities. Antegrade flow in both vertebral arteries. * We will check EEG to rule out any epileptiform activity. Patient is currently on Keppra 500 mg twice daily and Topamax 50 mg twice daily. Also on Mysoline for tremor. * MRI of the brain with and without contrast on 11/06/2023 revealed no suspicious changes to suggest recurrent tumor right frontal lobe. Postresection changes appear stable from comparison. Atrophy. Mild periventricular white matter changes adjacent to the anterior horns lateral ventricle. This white matter change extends towards the resection area of the right frontal lobe but appears stable from comparison. * On my review of the CT and MRI, there is slight prominence of the ventricles, raising concern for possible NPH. Recommend patient follow-up with her neurosurgeon outpatient. Alternatively she can also follow-up with her neurologist Dr. Aiken. Patient does have gait dysfunction, memory impairment and significant bladder control issues. * Check B12, folate. * Patient has abnormal UA. Patient was given Rocephin 1 g IV push once. Currently not on any antibiotics. Urine cultures pending. We will defer to IM. * Continue Keppra 500 mg twice daily and Topamax 50 mg twice daily for seizure prophylaxis. * DVT prophylaxis: Patient on Lovenox 40 mg subcu daily. * Dr. Luis Eduardo Jackson will resume neurology service in the morning. Thank you for the consult. Time with Patient: Greater than 30
[2024-01-08 06:48] LABS: Glucose,Whole Blood 125 mg/dL (70-110)
[2024-01-08] MEDS: PROPRANOLOL LA 60 MG CAP.SA.24H PO SCH (08:03)
[2024-01-08] MEDS: FAMOTIDINE 20 MG TAB PO SCH (08:03)
[2024-01-08] MEDS: ENOXAPARIN 40 MG/0.4 ML SYRINGE SQ SCH (08:03)
[2024-01-08] MEDS: FOLIC ACID 1 MG TAB PO SCH (11:06)
[2024-01-08] MEDS: CYANOCOBALAMIN 1,000 MCG/ML 1 ML VIAL IM ONE (11:06)
[2024-01-08 11:41] LABS: Glucose,Whole Blood 134 mg/dL (70-110)
--- NOTE | 2024-01-08 15:37 | P.PN ---
Subjective Progress Note Date: 01/09/24 This is a 79-year-old female admitted with reported slurred speech, confusion, altered mental status and falls, general weakness in a patient with history of malignant right frontal lobe brain tumor, status postresection 02/08/23 at [facility]- status post radiation therapy, ongoing nicotine dependence, COPD, hypothyroidism and multiple other medical issues. Patient initially left AMA, returned. This morning patient ambulating from bathroom to bed, tolerated exertion well. Vague historian, does not recall falling, prior to admission. Evaluated by neurology, previous MRI 11/06/23 reviewed. Neurowork-up in progress. Patient is scheduled for a follow-up MRI with her oncologist, Dr. Rashel Donnelly on 02/12/2024 and declined brain MRI at this visit. EEG pending. Continues on home meds of Keppra and Topamax-denies history of seizures. Conversing appropriately, recognizes PCP. Denies chest pain, palpitations or shortness of breath. Maintaining O2 sats in the 90s on room air. denies lightheadedness, dizziness or focal deficits. Moving all extremities. UA reported many bacteria, 65 WBCs, large leukocytes positive for nitrates, urine culture pending. Received ceftriaxone yesterday, reordered today. Afebrile, normal WBC. No new labs today. Blood sugars controlled. Objective - Vital Signs Vital signs: Vital Signs Temp 98.0 F 01/08/24 07:56 Pulse 79 01/08/24 13:20 Resp 16 01/08/24 11:37 BP 125/75 01/08/24 11:01 Pulse Ox 94 L 01/08/24 11:01 FiO2 Intake & Output 01/07/24 01/08/24 01/08/24 18:59 06:59 18:59 Intake Total 356 10 240 Balance 356 10 240 Weight 77.111 kg Intake: IV 10 Invasive Line 1 10 Oral 356 240 Other: Voiding Method Toilet Toilet Toilet # Voids 2 1 1 # Bowel Movements 2 - Exam PHYSICAL EXAM: VITAL SIGNS: [As above] GENERAL: Alert and oriented x 3, standing up at bedside, no acute distress. Conversing appropriately HEENT: Healed incisional scar over right eyebrow with subsequent right eyebrow lower than left.conjunctivae normal. eyes normal. NECK: Supple, no JVD. CARDIOVASCULAR: S1, S2 regular. No murmur RESPIRATION: Unlabored, equal air entry, clear to auscultation. ABDOMEN: Soft, nontender . No guarding. no masses palpable. No organomegaly.+BS LEGS: No edema. no swelling PSYCHIATRY: Alert and oriented X3, mood and affect normal. NERVOUS SYSTEM: Cranial N 2-12 grossly normal. Moves all 4 limbs. No focal deficits. Strength and sensation grossly intact. Skin: Warm and dry, no rash - Labs CBC & Chem 7: 01/07/24 04:04 01/07/24 04:04 Labs: Abnormal Lab Results - Last 24 Hours (Table) 01/08/24 01/08/24 Range/Units 06:46 11:39 POC Glucose (mg/dL) 125 H 134 H (70-110) mg/dL Assessment and Plan Assessment: Altered mental status, suspect related to acute UTI Acute UTI, UA reporting positive nitrates, culture pending. Right frontal malignant brain tumor status post craniotomy and radiation, 02/26 History of tremors, on Mysoline Ongoing nicotine dependence Plan: Continue on current medication resume ,monitoring and symptomatic treatment. Seizure prophylaxis maintained with Keppra and Topamax-home medications. Neurowork-up in progress including EEG. Discharge planning in progress pending ablation of neuro workup, final DC recommendations and clearance per neurology. Urine culture pending, antibiotics resumed. GI and DVT prophylaxis in place with Pepcid and Lovenox. Smoking cessation reinforced. PT/OT. The impression and plan of care has been dictated as directed. : I performed a history and examination of this patient, discussed the same with the dictator. I agree with the dictator's note ,documented as a scribe. Any additional findings or plans will be noted.
[2024-01-08 16:12] LABS: Glucose,Whole Blood 101 mg/dL (70-110)
--- NOTE | 2024-01-08 16:55 | P.PN ---
Progress Note - Text Progress Note Date: 01/08/24 Dr. Howard has seen the patient and ordered routine EEG. Preliminary EEG showed sharply contoured activity over the right hemisphere as well phase reversal over T4 which can increase risk for seizure. No seizure noted during this study. Will Increase keppra from 500mg bid to 1000mg bid.
[2024-01-08 19:48] LABS: Glucose,Whole Blood 118 mg/dL (70-110)
[2024-01-08] MEDS: levETIRAcetam 500 MG TAB PO SCH (20:32)
[2024-01-08 23:24] VITALS: TEMP 97.9
--- NOTE | 2024-01-09 01:06 | EEG ---
ELECTROENCEPHALOGRAM REPORT CLINICAL HISTORY: This is a 79-year-old female with a history of right frontal brain tumor, status post craniotomy, who has altered mental status. The video EEG is obtained to evaluate for seizure epileptiform activity. RELEVANT MEDICATION: Keppra. EEG TYPE: This is a routine 21-channel EEG with video using the 10/20 electrode placement system. DESCRIPTION: Wakefulness and drowsiness are obtained. During awake state, the background consists of [id number] voltage of 6.5 to 7.5 Hertz activity. There is no physiological stage 2 sleep architecture. There appears to be delta/theta activity slowing over the right temporal region. Interictal and ictal: There appears to be sharply contoured activity over the right hemisphere. Also, there appears to be a phase reversal over the T4. There is no seizure noted during the study. ACTIVATION PROCEDURE: Photic stimulation did not evoke a posterior driving response. There is no abnormality during the photic stimulation. Hyperventilation is not performed. CLINICAL INTERPRETATION: This is an abnormal routine EEG. The background slowing is suggestive of mild encephalopathy. The focal slowing over the right temporal region is suggestive of cerebral dysfunction in the involved region. There are epileptiform discharges over the right temporal, and there appears to be sharply contoured activity over the right hemisphere, which can increase risk for seizure. No seizure is noted during the study. Clinical correlation is recommended. MMJENL / SOFIAN: [id number] / MTDD
[2024-01-09 06:13] LABS: Glucose,Whole Blood 113 mg/dL (70-110)
[2024-01-09 08:11] VITALS: RESP 16
[2024-01-09] MEDS: CYANOCOBALAMIN 500 MCG TAB PO SCH (08:12)
[2024-01-09 11:42] LABS: Glucose,Whole Blood 114 mg/dL (70-110)
[2024-01-09 11:47] VITALS: BP 100/66
[2024-01-09 12:25] VITALS: PULSE 88
[2024-01-09 13:46] LABS: Basophils % (A) 1 %; Eosinophils # (A) 0.2 k/uL (0-0.7); Eosinophils % (A) 2 %; HCT 40.1 % (34.0-46.0); HGB 13.3 gm/dL (11.4-16.0); Lymphocytes # (A) 1.5 k/uL (1.0-4.8); Lymphocytes % (A) 23 %; MCH 30.8 pg (25.0-35.0); MCHC 33.1 g/dL (31.0-37.0); Mean Platelet Volume 10.5; Monocytes # (A) 0.7 k/uL (0-1.0); Monocytes % (A) 11 %; Neutrophils # (A) 3.9 k/uL (1.3-7.7); Neutrophils % (A) 60 %; Platelet Count 265 k/uL (150-450); RBC 4.31 m/uL (3.80-5.40); RDW 13.8 % (11.5-15.5); WBC 6.6 k/uL (3.8-10.6)
[2024-01-09 14:32] LABS: African American GFR (CKD) >90 (>60 ml/min/1.73 sqM); Anion Gap 6 mmol/L; Blood Urea Nitrogen 18 mg/dL (7-17); Calcium 9.6 mg/dL (8.4-10.2); Carbon Dioxide 27 mmol/L (22-30); Chloride 109 mmol/L (98-107); Glucose 96 mg/dL (74-99); Non-African American GFR(CKD) 82 (>60 ml/min/1.73 sqM); Sodium 142 mmol/L (137-145)
[2024-01-09 14:39] LABS: Potassium 4.2 mmol/L (3.5-5.1)
--- NOTE | 2024-01-09 15:49 | P.PN ---
Subjective Progress Note Date: 01/09/24 I am seeing the patient for the first time during this admission. Please refer to Dr. Howard's note for further details. Seems the patient had altered mental status and Dr. Howard felt it was due to acute UTI. Patient has a history of right frontal brain tumor status postcraniotomy and that was in February 2023. Patient states that she follows up with Dr. Aiken and he placed her on Keppra as a seizure prophylaxis but she never had seizures according to the patient. Currently she is doing much better. Yesterday she had an EEG which showed sharply contoured activity over the right hemisphere in the phase reversal over the T4 which can increase risk for seizure. No seizure during the study. I increased her Keppra from 500 twice a day to 8000 mg twice daily yesterday. She is tolerating the medication well without any issues. Objective - Vital Signs Vital signs: Vital Signs Temp 97.9 F 01/09/24 04:00 Pulse 88 01/09/24 12:31 Resp 16 01/09/24 11:46 BP 100/66 01/09/24 11:46 Pulse Ox 95 01/09/24 11:46 FiO2 Intake & Output 01/08/24 01/09/24 01/09/24 18:59 06:59 18:59 Intake Total 600 360 Balance 600 360 Intake: Oral 600 360 Other: Voiding Method Toilet Toilet # Voids 1 2 2 - Exam General: Sitting in a chair and is not in acute distress. Neuro: The patient is awake, alert, oriented to self, place and time. Is following simple commands. Has slow speech. Visual villegas are full to confrontation. EOM is intact and no nystagmus. Has left lower facial droop. No dysathria. Motor: Lifting uppers and lowers above gravity equally. - Labs CBC & Chem 7: 01/09/24 12:40 01/09/24 12:40 Labs: Abnormal Lab Results - Last 24 Hours (Table) 01/08/24 01/09/24 01/09/24 Range/Units 19:46 06:12 11:35 Chloride (98-107) mmol/L BUN (7-17) mg/dL POC Glucose (mg/dL) 118 H 113 H 114 H (70-110) mg/dL 01/09/24 Range/Units 12:40 Chloride 109 H (98-107) mmol/L BUN 18 H (7-17) mg/dL POC Glucose (mg/dL) (70-110) mg/dL Microbiology - Last 24 Hours (Table) 01/07/24 03:15 Urine Culture - Preliminary Urine,Clean Catch Gram Neg Bacilli Assessment and Plan Assessment: * Altered mental status, likely due to acute UTI. Had EEG and showed discharge over the right temporal but no seizure---mentation improved. * Abnormal CT head, with evidence of mild prominence of the ventricles, concerning for possible NPH. * History of right frontal brain tumor, status post craniotomy followed by radiation therapy in February 2023 * History of tremors, follows up with Dr. Aiken Plan: * Dr. Howard, discussed about obtaining an MRI of the brain. Patient states that she is scheduled for MRI through her oncologist on 02/12/2024, therefore she wanted to hold off on it. * Carotid Doppler revealed atheromatous plaquing without significant flow- limiting stenosis based on velocities. Antegrade flow in both vertebral arteries. * Routine EEG: Is abnormal. The background slowing is suggestive of mild encephalopathy. The folcal slowing over the right temporal is suggestive of cerebral dysfunction in the involved region. The are epileptiform discharges over the right temporal and there appears sharply contoured activity over the right hemisphere which can increase risk for seizure. No seizure noted during this study. * Because of the epileptiform discharges, I increased her home Keppra from 500mg bid to 100mg bid yesterday and is tolerating adjustment. She is resumed on home Topamax 50 mg twice daily. Also on Mysoline for tremor. * MRI of the brain with and without contrast on 11/06/2023 revealed no suspicious changes to suggest recurrent tumor right frontal lobe. Postresection changes appear stable from comparison. Atrophy. Mild periventricular white matter changes adjacent to the anterior horns lateral ventricle. This white matter change extends towards the resection area of the right frontal lobe but appears stable from comparison. * Per Dr. Howard's review of the CT and MRI, there is slight prominence of the ventricles, raising concern for possible NPH. Recommend patient follow-up w ith her neurosurgeon outpatient. Alternatively she can also follow-up with her neurologist Dr. Aiken. Patient does have gait dysfunction, memory impairment and significant bladder control issues. * Check B12: 266, recommend Vitamin B12 supplement, folate is 8.20. * Patient has abnormal UA. Patient was given Rocephin 1 g IV push once. Currently not on any antibiotics. Urine cultures pending. We will defer to IM. * DVT prophylaxis: Patient on Lovenox 40 mg subcu daily. The plan is discussed with patient and her nurse. There is no further neurological work-up. Time with Patient: Less than 30
== END 2024-01-09 14:53 | disposition home or self-care (01) ==
LOC: EC 22:26 → 3SCARD 01-07 00:42
PROVIDERS: ADMIT Family Medicine; ATTEND Family Medicine
DX: R47.81 Slurred speech (principal); N39.0 Urinary tract infection, site not specified; J44.1 Chronic obstructive pulmonary disease with (acute) exacerbation; K21.9 Gastro-esophageal reflux disease without esophagitis; E03.9 Hypothyroidism, unspecified; R41.82 Altered mental status, unspecified; R25.1 Tremor, unspecified; R82.71 Bacteriuria; R93.0 Abnormal findings on diagnostic imaging of skull and head, not elsewhere classified; R94.01 Abnormal electroencephalogram [EEG]; F17.210 Nicotine dependence, cigarettes, uncomplicated; Z85.828 Personal history of other malignant neoplasm of skin; Z85.841 Personal history of malignant neoplasm of brain; Z92.3 Personal history of irradiation; Z79.51 Long term (current) use of inhaled steroids; Z79.899 Other long term (current) drug therapy
CPT/HCPCS: 96365; 96366; 96372 ×2; 96376; 99285; 94640 ×5; 95816; 93005; 97161; 97166; 92523; 80053; 80048; 82607; 82746; 85025 ×2; 81001; 87086; 87077; 87186; G0378 ×4; S4990 ×3; J3420; J1650 ×2; J0696 ×3

== ENCOUNTER → 2024-02-12 | Outpatient (CLI) | payer MEDICARE, OTHER ==
--- NOTE | 2024-02-26 05:43 | MR ---
EXAMINATION TYPE: MR brain wo/w con DATE OF EXAM: 02/12/2024 COMPARISON: [id number] HISTORY: Follow-up tumor resection February 2023, brain cancer. CONTRAST: Performed utilizing 8 mL intravenous Gadavist gadolinium contrast. TECHNIQUE: Multiplanar, multiecho imaging on a 3.0 Ally magnet is performed through the brain. Stud y is performed within 24 hours of arrival to the hospital. The craniovertebral junction is normal. The pituitary is normal. Optic chiasm as visualized appears normal Diffusion-weighted imaging is performed. No abnormal hyperintensity is present to suggest an acute i ntracranial infarct or acute ischemic change. There is resection of the inferior right frontal lobe. Adjacent white matter hyperintensity is presen t finding is stable from comparison. Following contrast, no suspicious enhancement is evident. No suspicious changes for recurrence identi fied. There are scattered punctate areas of hyperintensity on T2 and Inversion Recovery weighted sequences which are non-specific but can be related to microvascular ischemic changes. Ventricles and sulci are prominent this is unchanged from comparison. for the patient age. There is opacification of the right maxillary sinus. Correlate for chronic sinusitis. There is a stab le rounded hyperintensity on T2-weighted sequences in the right music professionals space. Some hyperintensiti es within the left mastoid air cells. IMPRESSION: 1. Stable post surgical changes inferior right frontal lobe. No suspicious changes to suggest recurre nce. 2. Right frontal white matter changes stable from comparison
== END | disposition home or self-care (01) ==
LOC: RADMRIMAIN 13:27
PROVIDERS: ATTEND Radiology Radiation Oncology
DX: D42.0 Neoplasm of uncertain behavior of cerebral meninges (principal); D43.0 Neoplasm of uncertain behavior of brain, supratentorial; R90.82 White matter disease, unspecified; F17.210 Nicotine dependence, cigarettes, uncomplicated; Z98.890 Other specified postprocedural states
CPT/HCPCS: 70553; A9585

== ENCOUNTER → 2024-05-07 | Outpatient (CLI) | payer MEDICARE, OTHER ==
--- NOTE | 2024-05-07 17:17 | MR ---
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 COMPARISON: 02/12/2024 TECHNIQUE: Multi planar, multi sequence imaging was performed through the brain including: T1, T2, In version recovery, susceptibility weighted imaging and gradient echo imaging and Diffusion weighted im aging. The patient was then given intravenous contrast and multi planar, T1 fat-saturation images wer e obtained. IV Contrast: 7 cc Gadavist FINDINGS: Postsurgical changes right frontal lobe with dural thickening and susceptibility blooming a rtifact compatible with hemosiderin deposition. Mild cerebral atrophy with proportional dilation of ventricular system. Diffusion-weighted imaging s hows no evidence of restricted diffusion to suggest acute/subacute infarct. Intracranial arterial mir w voids are maintained. Midline structures show no abnormality. Scattered foci of high T2 signal inte nsity are seen within the periventricular white matter. The susceptibility weighted images do not rev eal any evidence for micro-hemorrhage. After administration of gadolinium, no abnormal enhancement is seen. The bone marrow signal is within normal limits. Paranasal sinuses and mastoid air cells: Mild scattered paranasal sinus disease. There is dural thick ening in the surgical bed. Visualized orbits: Bilateral aphakia IMPRESSION: 1. Stable postsurgical changes, No evidence of intracranial mass, acute/subacute infarct, or abnormal enhancement. 2. Nonspecific white matter changes, likely related to small vessel ischemic disease. [facility], , 05/07/2024 5:15 PM
== END | disposition home or self-care (01) ==
LOC: RADMRIMAIN 10:04
PROVIDERS: ATTEND Radiology Radiation Oncology
DX: D42.0 Neoplasm of uncertain behavior of cerebral meninges (principal); D32.0 Benign neoplasm of cerebral meninges; Z98.890 Other specified postprocedural states
CPT/HCPCS: 70553

== ENCOUNTER → 2024-07-25 | Outpatient (CLI) | payer MEDICARE, OTHER ==
[2024-07-25 14:58] LABS: African American GFR (CKD) 74 (>60 ml/min/1.73 sqM); Blood Urea Nitrogen 21 mg/dL (7-17); Non-African American GFR(CKD) 64 (>60 ml/min/1.73 sqM)
--- NOTE | 2024-07-25 20:25 | US ---
EXAMINATION TYPE: US thyroid st tissue head/neck DATE OF EXAM: 07/25/2024 COMPARISON: US CLINICAL INDICATION: Female, 79 years old with history of E042 MULTINODULAR THYROID; F/U nodules TECHNIQUE: Grayscale and color Doppler imaging of the thyroid gland. FINDINGS: GLAND SIZE: Right Lobe: 5.5 x 2.6 x 2.8 cm Overall Parenchyma: heterogeneous Left Lobe: 5.0 x 2.1 x 1.6 cm Overall Parenchyma: heterogeneous Isthmus Thickness: 0.4 cm NODULES RIGHT: # of nodules measured on right: 2 1. 2.2 X 1.1 x 2.3 cm, upper, solid or almost completely solid, isoechoic nodule, which is wider th an tall, with smooth margins, without echogenic foci. TR 3 Prior size: 3.1 x 1.7 x 2.5 cm 2. 2.6 X 1.7 x 1.8 cm, mid , solid or almost completely solid, hypoechoic nodule, which is wider th an tall, with smooth margins, without echogenic foci. TR 4 Prior size: 2.4 x 1.6 x 2.1 cm LEFT: # of nodules measured on left: 2 1. 1.8 X 1.6 x 1.3 cm, lower, solid or almost completely solid, hyperechoic nodule, which is wider than tall, with smooth margins, without echogenic foci. TR 3 Prior size: 1.8 x 1.8 x 1.5 cm 2. 1.2 X 1.0 x 1.0 cm, mid , solid or almost completely solid, hypoechoic nodule, which is wider t mchugh tall, with smooth margins, without echogenic foci. TR 4 Prior size: 1.4 x 0.9 x 1.1 cm ISTHMUS: # of nodules measured in the isthmus: 1 1. 1.8 X 1.0 x 1.9 cm solid or almost completely solid, hypoechoic nodule, which is wider than tall , with smooth margins, without echogenic foci. TR 4 Prior size: Not visualized on prior Bilateral neck scanned, no evidence of lymphadenopathy. Stable nodules right and left lobe, new nodul e right isthmus. IMPRESSION: 1. Multinodular thyroid with interval incremental increase in size of a 2.6 cm right thyroid nodule w hich meets the criteria for FNA. 2. Interval development of a 1.8 cm Isthmus TR 4 nodule which does meet the criteria for FNA. 3. Thyromegaly correlate for thyroiditis. 2017 ACR TI-RADS LEVEL: TR-RADS 4 - Moderately Suspicious: Follow if > 1 cm, FNA if > 1.5 cm *Highest TI-RADS level nodule reported [email or web address] [facility], , 07/25/2024 8:23 PM
--- NOTE | 2024-07-26 10:53 | CT ---
EXAMINATION TYPE: CT adrenal glands wo/w con DATE OF EXAM: 07/25/2024 5:29 PM COMPARISON: None CLINICAL INDICATION: Female, 79 years old with history of E27.9 DISORDER OF ADRENAL GLAND, UNSPEC E04 .2 NONT; Nodule on adrenal gland. TECHNIQUE: Axial CT adrenal glands wo/w con;Sagittal and coronal reformats were created on a [employer] workstation. Contrast used:100 ml mL of Isovue 300 with IV Contrast, (none if empty) Oral contrast used: (none if empty) CT DLP: 1109.6 mGycm, Automated exposure control for dose reduction was used. FINDINGS: LOWER CHEST: Unremarkable ABDOMEN LIVER: Unremarkable GALLBLADDER AND BILE DUCTS: Unremarkable. PANCREAS: Unremarkable. SPLEEN: Unremarkable. ADRENAL GLANDS: Left adrenal nodule measuring 19 Hounsfield units noncontrast, 73 Hounsfield units po stcontrast and 39 Hounsfield units delayed imaging. Measuring up to 15 mm Absolute Washout:63.0% Absolute washout of 60% or higher is consistent with an adenoma. Relative Washout:46.6% Relative washout of 40% or higher is consistent with an adenoma. No evidence for right adrenal nodule. KIDNEYS AND URETERS: No evidence of hydronephrosis or renal calculus. The ureters are unremarkable. STOMACH AND BOWEL: No evidence of bowel obstruction. Appendix is normal. PERITONEUM/RETROPERITONEUM: No evidence of pneumoperitoneum or free fluid. VASCULATURE: No evidence of aortic aneurysm. MUSCULOSKELETAL: No acute osseous abnormalities. Moderate disc degeneration changes are present throu ghout the thoracolumbar spine. LYMPH NODES: No gross evidence for lymphadenopathy. SOFT TISSUE/ABDOMINAL WALL: Unremarkable IMPRESSION: 1. Left adrenal 15 mm nodule most compatible with adrenal adenoma. 2. No acute abdominal process. [facility], , 07/26/2024 10:50 AM
== END | disposition home or self-care (01) ==
LOC: RADCTMAIN 14:00
PROVIDERS: ATTEND Family Medicine
DX: E27.9 Disorder of adrenal gland, unspecified (principal); E04.2 Nontoxic multinodular goiter
CPT/HCPCS: 82565; 84520; 76536; 36415; 74170; Q9967

== ENCOUNTER → 2024-11-19 | Outpatient (CLI) | payer MEDICARE, OTHER ==
--- NOTE | 2024-11-19 15:30 | MR ---
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 COMPARISON: Multiple MRI brain with most recent 05/07/2024, multiple CT brain with most recent TECHNIQUE: Multi planar, multi sequence imaging was performed through the brain. The patient was then given 8 cc of Gadobutrol intravenously and multi planar, T1 fat-saturation images were obtained. FINDINGS: Postsurgical changes within the right frontal lobe. There is again associated dural thicken ing and susceptibility blooming artifact compatible with hemosiderin deposition. Stable 2 mm enhancin g focus within the surgical bed anteriorly (series 701, image 104). 4.2 mm round enhancing focus with in the posterior surgical bed abutting the anterior horn of the right lateral ventricle (series 701, image 85). There is surrounding similar FLAIR signal hyperintensity within the right frontal lobe and medial left frontal lobe. Mild cerebral atrophy with proportional dilation of ventricular system. Diffusion-weighted imaging s hows no evidence of restricted diffusion to suggest acute/subacute infarct. Intracranial arterial mir w voids are maintained. Midline structures show no abnormality. The bone marrow signal is within normal limits. Paranasal sinuses and mastoid air cells: Near-complete T2 hyperintense opacification of the right max illary sinus. 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 Visualized orbits: Bilateral aphakia IMPRESSION: 1. Postsurgical changes of the right frontal lobe with new 4.2 mm enhancing focus within the posterio r aspect of the surgical bed abutting the anterior horn of the right lateral ventricle. Additional st able punctate focus of enhancement within the surgical bed. Raises concern for recurrence. Similar smith rrounding FLAIR signal hyperintensity with additional involvement of the medial left frontal lobe. 2. No evidence for acute/subacute infarct. 3. Near complete opacification of the right maxillary sinus. Correlate for acute sinusitis. [facility], , 11/19/2024 3:28 PM
== END | disposition home or self-care (01) ==
LOC: RADMRIMAIN 13:34
PROVIDERS: ATTEND Radiology Radiation Oncology
DX: D42.0 Neoplasm of uncertain behavior of cerebral meninges (principal); D32.0 Benign neoplasm of cerebral meninges; J34.89 Other specified disorders of nose and nasal sinuses
CPT/HCPCS: 70553; A9585

== ENCOUNTER → 2025-02-28 | Outpatient (CLI) | payer MEDICARE, OTHER ==
--- NOTE | 2025-03-01 11:41 | MR ---
EXAMINATION TYPE: MR brain wo/w con DATE OF EXAM: 02/28/2025 2:24 PM COMPARISON: 11/19/2024.. CLINICAL INDICATION: Female, 80 years old with history of R91.1 SOLITARY PULMONARY NODULE; [facility], 3-mon th f/u to prior abnormal MRI TECHNIQUE: Multi planar, multi sequence imaging was performed through the brain including: T1, T2, In version recovery, susceptibility weighted imaging and gradient echo imaging and Diffusion weighted im aging. The patient was then given intravenous contrast and multi planar, T1 fat-saturation images wer e obtained. IV Contrast: 7.5 mL Gadobutrol FINDINGS: Postsurgical changes within the right frontal lobe. There is again associated dural thickening and smith sceptibility blooming artifact compatible with hemosiderin deposition. Decrease in size of 2.5 mm, pr eviously 3.5 mm enhancing focus within the surgical bed anteriorly (series 701, image 98). Decrease i n size of 2.7 mm, previously 4.2 mm round enhancing focus within the posterior surgical bed abutting the anterior horn of the right lateral ventricle (series 701, image 81). There is surrounding similar FLAIR signal hyperintensity within the right frontal lobe and medial left frontal lobe. No new or en hancing lesions identified. Mild cerebral atrophy with proportional dilation of ventricular system. Diffusion-weighted imaging s hows no evidence of restricted diffusion to suggest acute/subacute infarct. Intracranial arterial mir w voids are maintained. Midline structures show no abnormality. The bone marrow signal is within normal limits. Paranasal sinuses and mastoid air cells: Similar Near-complete T2 hyperintense opacification of the r ight maxillary sinus. 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 Visualized orbits: Bilateral aphakia IMPRESSION: 1. Postsurgical changes of the right frontal lobe with decrease in size of enhancing foci compared to prior. similar surrounding FLAIR signal hyperintensity with additional involvement of the medial lef t frontal lobe. 2. No evidence for acute/subacute infarct. 3. Similar Near complete opacification of the right maxillary sinus. Correlate for acute sinusitis. [facility], , 03/01/2025 11:38 AM
== END | disposition home or self-care (01) ==
LOC: RADMRIMAIN 13:43
PROVIDERS: ATTEND Radiology Radiation Oncology
DX: D42.0 Neoplasm of uncertain behavior of cerebral meninges (principal); D32.0 Benign neoplasm of cerebral meninges; F17.210 Nicotine dependence, cigarettes, uncomplicated; Z98.890 Other specified postprocedural states; J34.89 Other specified disorders of nose and nasal sinuses
CPT/HCPCS: 70553; A9585

== ENCOUNTER → 2025-03-03 | Outpatient (CLI) | payer MEDICARE, OTHER ==
--- NOTE | 2025-03-03 15:40 | US ---
EXAMINATION TYPE: US thyroid st tissue head/neck DATE OF EXAM: 03/03/2025 COMPARISON: Multiple thyroid ultrasounds with most recent 07/25/2024 CLINICAL INDICATION: Female, 80 years old with history of E04.2 NONTOXIC MULTINODULAR GOITER; Follow up TECHNIQUE: Grayscale and color Doppler imaging of the thyroid gland. FINDINGS: GLAND SIZE: Right Lobe: 4.4 x 2.4 x 2.4 cm Overall Parenchyma: heterogeneous Left Lobe: 4.8 x 2.3 x 1.7 cm Overall Parenchyma: heterogeneous Isthmus Thickness: 0.4 cm NODULES RIGHT: # of nodules measured on right: 2 1. 2.4 X 1.2 x 2.2 cm, upper mid, solid or almost completely solid, isoechoic nodule, which is wide r than tall, with smooth margins, without echogenic foci. TR 3. Prior size: 2.2 x 1.1 x 2.3 cm 2. 2.7 X 1.8 x 1.9 cm, mid mid, solid or almost completely solid, hypoechoic nodule, which is wider than tall, with smooth margins, without echogenic foci. TR 4. Prior size: 2.6 x 1.7 x 1.8 cm LEFT: # of nodules measured on left: 2 1. 2.0 X 1.6 x 1.7 cm, lower mid, solid or almost completely solid, hyperechoic nodule, which is wi mar than tall, with smooth margins, without echogenic foci. TR 3 Prior size: 1.8 x 1.6 x 1.3 cm 2. 1.3 X 0.9 x 1.5 cm, mid mid, solid or almost completely solid, hypoechoic nodule, which is wid er than tall, with smooth margins, without echogenic foci. TR 4. Prior size: 1.2 x 1.0 x 1.0 cm ISTHMUS: # of nodules measured in the isthmus: 1 1. 1.9 X 0.7 x 1.7 cm solid or almost completely solid, hypoechoic nodule, which is wider than tall , with smooth margins, without echogenic foci. TR 4. Prior size: 1.8 x 1.0 x 1.9 cm Two small hypoechoic areas seen bilaterally measuring: Left: 0.7 cm Right: 0.7 cm These are consistent with benign-appearing lymph nodes. IMPRESSION: Multinodular thyroid gland is redemonstrated as described above. Marginal increase in size of the nod ules from prior exam. Highest TI-RADS level nodule reported: ACR TI-RADS LEVEL: TI-RADS 4: Follow if > 1 cm, FNA if > 1.5 cm TI-RADS assessment score and recommendation for follow-up based on appropriate scoring and treatment protocols. TR1 Benign No FNA TR2 Not suspicious No FNA TR3: If nodule size is ? 2.5 cm, FNA is recommended. If nodule size is ? 1.5 cm, follow-up imaging at 1, 3, and 5 years is recommended. TR4: If nodule size is ? 1.5 cm, FNA is recommended. If nodule size is ? 1.0 cm, follow-up imaging at 1, 2, 3, and 5 years is recommended. TR5: If nodule size is ? 1.0 cm, FNA is recommended. If nodule size is ? 0.5 cm, annual follow-up for up to 5 years is recommended. TR 1 thyroid nodules have a 0.3 % risk of malignancy. TR 2 thyroid nodules have a 1.5 % risk of malignancy. TR 3 thyroid nodules have a 4.8 % risk of malignancy. TR 4 thyroid nodules have a 9.1 % risk of malignancy. TR 5 thyroid nodules have a 35 % risk of malignancy. [email or web address] [facility], , 03/03/2025 3:38 PM
== END | disposition home or self-care (01) ==
LOC: RADUSWWP 14:28
PROVIDERS: ATTEND Internal Medicine Endocrinology, Diabetes & Metabolism
DX: E04.2 Nontoxic multinodular goiter (principal)
CPT/HCPCS: 76536